=== PATIENT | female | born 1970 | race African-American/Black ===

== ENCOUNTER 2018-01-05 02:10 | Inpatient (IN) | payer OTHER ==
[~2018-01-05] VITALS: Ht 162.6 cm; Wt 101.9 kg
--- OUTSIDE RECORDS SUMMARY | 2018-01-05 02:13 | XMS REPORT | Clinical Summary ---
Author Author [facility] Address Unknown Phone Unavailable Care Team Providers Care Robotics Application Engineer Name Role Phone Prasanna Pollock MD PCP Allergies No Known Allergies Current Medications Prescription Sig. Disp. Refills Start End Date Status Date predniSONE (DELTASONE) 1 Take 1 mg by mouth daily. Active mg tablet diphenhydrAMINE Take 25 mg by mouth Active (BENADRYL) 25 mg tablet nightly as needed for sleep. doxycycline (VIBRAMYCIN) Take 100 mg by mouth 2 Active 100 MG oral dosage form (two) times a day. 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 Encounters Date Type Specialty Care Team Description 08/07/2017 [facility] Emergency Medicine Ankur White MD Angioedema, initial Encounter Venancio Vegas MD encounter (Primary Dx) 07/01/2017 [facility] Radiology Maris, Salvador Breast mass; Encounter MD Prasanna Mastodynia 07/01/2017 [facility] Radiology Maris Salvador Breast mass; Encounter MD Prasanna Mastodynia 06/28/2017 Transcribe Access Allencherrikentrell, Salvador Breast mass (Primary Dx); Orders MD Prasanna Mastodynia 05/13/2017 [facility] Surgical Intensive Care Ankur White MD Hereditary angioedema Encounter Venancio Vegas MD (Primary Dx) 05/06/2017 Emergency Emergency Medicine Parish Lyles MD after 01/04/2017 Immunizations Name Dates Previously Given Next Due FLUCELVAX QUAD PF (0.5mL 05/13/2017 syringe) Social History Tobacco Use Types Packs/Day Years Used Date Never Smoker Alcohol Use Drinks/Week oz/Week Comments No Sex Assigned at Date Recorded Not on file Last Filed Vital Signs Vital Sign Reading Time Taken Blood Pressure 136/73 08/07/2017 5:44 PM HIGH SCHOOL ASSISTANT FOOTBALL COACH Pulse 94 08/07/2017 5:44 PM HIGH SCHOOL ASSISTANT FOOTBALL COACH Temperature 36.4 C (97.6 F) 08/07/2017 5:44 PM HIGH SCHOOL ASSISTANT FOOTBALL COACH Respiratory Rate 19 08/07/2017 5:44 PM HIGH SCHOOL ASSISTANT FOOTBALL COACH Oxygen Saturation 100% 08/07/2017 5:44 PM HIGH SCHOOL ASSISTANT FOOTBALL COACH Inhaled Oxygen - - Concentration Weight 95.3 kg (210 lb) 08/07/2017 4:10 AM HIGH SCHOOL ASSISTANT FOOTBALL COACH Height 165.1 cm (5' 5") 08/07/2017 4:10 AM HIGH SCHOOL ASSISTANT FOOTBALL COACH Body Mass Index 34.95 08/07/2017 4:10 AM HIGH SCHOOL ASSISTANT FOOTBALL COACH Plan of Treatment Health Maintenance Due Date Last Done Comments PAP SMEAR 1989 INFLUENZA VACCINE 04/02/2018 05/13/2017 Procedures Procedure Name Priority Date/Time Associated Diagnosis Comments PA CRITICAL CARE, E/M Routine 05/15/2017 Results for this 30-74 MINUTES 10:15 AM CDT procedure are in the results section. after 01/04/2017 Results * XR Chest 1 Vw Portable (08/07/2017 7:27 AM) Only the most recent of 2 results within the time period is included. Specimen Performing Laboratory [facility] [address] [place] [address] Narrative EXAMINATION:XR CHEST 1 VW PORTABLE CLINICAL HISTORY:SHORTNESS OF BREATH COMPARISON:Most Recent Prior at [facility] IMPRESSION: The pulmonary vascular is slightly more prominent. The inspiratory effort is more shallow. Increasing atelectasis at the lung bases. No pneumothorax. [facility]-[id number] Procedure Note Interface, Radiology Results Incoming - 08/07/2017 7:31 AM HIGH SCHOOL ASSISTANT FOOTBALL COACH EXAMINATION: XR CHEST 1 VW PORTABLE CLINICAL HISTORY: SHORTNESS OF BREATH COMPARISON: Most Recent Prior at [facility] IMPRESSION: The pulmonary vascular is slightly more prominent. The inspiratory effort is more shallow. Increasing atelectasis at the lung bases. No pneumothorax. [facility]-[id number] * Estimated GFR (08/07/2017 6:24 AM) Only the most recent of 3 results within the time period is included. Component Value Ref Range GFR Non Af Amer 76 mL/min/1.73 m2 GFR Af Amer >90 mL/min/1.73 m2 Comment: Chronic kidney disease: <60 mL/min/1.73m2 Kidney failure: <15 mL/min/1.73m2 The estimated GFR is calculated from the IDMS-traceable Modification of Diet in Renal Disease Equation. The accuracy of the calculation is poor when the creatinine is normal. Calculated values >90 mL/min/1.73m2 are not reported. This equation has not been validated in children (<18 years), women, the elderly (>70 years), or ethnic groups other than Caucasians and Americans. Specimen Performing Laboratory Plasma specimen [facility] [address] [place] [address] * CBC with platelet and differential (08/07/2017 6:24 AM) Only the most recent of 3 results within the time period is included. Component Value Ref Range WBC 7.8 4.2 - 11.0 k/uL RBC 4.03 (L) 4.04 - 5.86 m/uL HGB 12.4 11.5 - 15.3 g/dL HCT 36.4 34.0 - 45.0 % MCV 90.3 80.0 - 98.0 fL MCH 30.8 27.0 - 34.0 pg MCHC 34.1 31.5 - 36.5 g/dL RDW - SD 43.9 37.0 - 51.0 fL MPV 8.8 7.4 - 10.4 fL Platelet count 314 150 - 400 k/uL Nucleated RBC 0.00 /100 WBC Neutrophils 70.1 (H) 36.0 - 66.0 % Lymphocytes 24.3 24.0 - 44.0 % Monocytes 3.6 0.0 - 6.0 % Eosinophils 1.2 0.0 - 6.0 % Basophils 0.5 0.0 - 1.2 % Immature granulocytes 0.3 0.0 - 1.0 % Specimen Performing Laboratory Blood [facility] [address] [place] [address] * Type and screen (08/07/2017 6:24 AM) Only the most recent of 2 results within the time period is included. Component Value Ref Range ABO grouping OComment: Blood is available. Called opal @0738 . Rh type NEG Antibody screen (gel) NEG Specimen Performing Laboratory Blood [facility]IC[facility] [address] [place] [address] * Comprehensive metabolic panel (08/07/2017 6:24 AM) Only the most recent of 3 results within the time period is included. Component Value Ref Range Sodium 140 135 - 150 mEq/L Potassium 4.1 3.5 - 5.0 mEq/L Chloride 107 100 - 109 mEq/L CO2 25 24 - 32 mmol/L Anion gap 8 7 - 15 mEq/L Comment: Starting from December , anion gap calculation no longer incorporates potassium. Please note the change. BUN 14 7 - 18 mg/dL Creatinine 0.8 0.8 - 1.5 mg/dL Glucose 99 65 - 100 mg/dL Calcium 8.4 (L) 8.6 - 10.7 mg/dL Protein 7.7 6.3 - 8.2 g/dL Albumin 3.4 3.2 - 5.0 g/dL A/G ratio 0.8 0.7 - 3.8 Alkaline phosphatase 73 30 - 120 U/L AST 12 (L) 15 - 37 U/L ALT 11 (L) 30 - 65 U/L Total bilirubin 0.2 0.2 - 1.2 mg/dL Specimen Performing Laboratory Plasma specimen [facility] [address] [place] [address] [place] [address] * ECG 12 lead (08/07/2017 5:52 AM) Only the most recent of 2 results within the time period is included. Component Value Ref Range Ventricular rate 75 Atrial rate 75 PA interval 172 QRSD interval 86 QT interval 404 QTC interval 451 P axis 1 53 QRS axis 1 59 T wave axis 52 EKG impression Normal sinus rhythm-Normal ECG-In automated comparison with ECG of 13-MAY-2017 03:00,-No significant change was found- Specimen Performing Laboratory [facility] [address] [place] [address] * US Breast Complete Bilateral (07/01/2017 9:44 AM) Specimen Performing [facility] [address] [place] [address] Narrative PROCEDURES:MAMMO DIAGNOSTIC W CAD BILATERAL, US BREAST COMPLETE BILATERAL Computer aided detection was utilized for the interpretation. COMPARISON: None available at this time from [place] 2-4 years ago. CLINICAL HISTORY: 47-year-old female presents for evaluation of a palpable abnormality in the right upper outer breast. FINDINGS: Breast density: The breasts are heterogeneously dense which may obscure small masses (category C). Mammography Findings: A palpable marker is placed in the right upper outer breast. No architectural distortion or mammographic mass is identified but may be obscured by the dense breast parenchyma. No suspicious microcalcifications are identified. There is no specific mammographic features of malignancy of either breast. Ultrasound Findings: Bilateral whole breast sonography (all 4 quadrants, retroareolar location, and axillae) was performed by the sonographerunder supervision of the interpreting radiologist. The patient indicated area of palpable concern in the right upper outer breast corresponds to dense fibroglandular tissue. 2 small simple cysts are present in the right outer breast at the 10 o'clock position, 9 cm from the nipple and inthe 9 o'clock position, 7 cm from the nipple, both measuring under 1 cm in size. The remainder of the whole right breast examination is unremarkable. The left breast is sonographically unremarkable. The axillae bilaterallydemonstrate nonspecific mildly thickened cortex lymph nodes. IMPRESSION: No mammographic or sonographic evidence of malignancy. Area of palpable concern in the right upper outer breast corresponding to fibroids or tissue. Incidental 7 mm small benign cysts are noted in the right outer breast at 9 o'clock and upper outer breast at 10 o'clock. Findings and recommendations were discussed with the patient. ASSESSMENT:BI-RADS CATEGORY 2: BENIGN. RECOMMENDATIONS: In the absence of any clinical change, return to annual screening is recommended. NOTE: This facility is a designated [facility] Breast Imaging Center of Excellence ( BICOE) , meeting standards of accreditation in all modalities of breast imaging. This facility is accredited by [employer] for Mammography and BreastUltrasound. A negative x-ray report should not delay biopsy if a dominant or clinically suspicious mass is present. Not all cancers are identified by x-ray. [id number] * Mammo Diagnostic w Cad Bilateral (07/01/2017 9:23 AM) Specimen Performing Laboratory [address] [address] Narrative PROCEDURES:MAMMO DIAGNOSTIC W CAD BILATERAL, US BREAST COMPLETE BILATERAL Computer aided detection was utilized for the interpretation. COMPARISON: None available at this time from [place] 2-4 years ago. CLINICAL HISTORY: 47-year-old female presents for evaluation of a palpable abnormality in the right upper outer breast. FINDINGS: Breast density: The breasts are heterogeneously dense which may obscure small masses (category C). Mammography Findings: A palpable marker is placed in the right upper outer breast. No architectural distortion or mammographic mass is identified but may be obscured by the dense breast parenchyma. No suspicious microcalcifications are identified. There is no specific mammographic features of malignancy of either breast. Ultrasound Findings: Bilateral whole breast sonography (all 4 quadrants, retroareolar location, and axillae) was performed by the sonographerunder supervision of the interpreting radiologist. The patient indicated area of palpable concern in the right upper outer breast corresponds to dense fibroglandular tissue. 2 small simple cysts are present in the right outer breast at the 10 o'clock position, 9 cm from the nipple and inthe 9 o'clock position, 7 cm from the nipple, both measuring under 1 cm in size. The remainder of the whole right breast examination is unremarkable. The left breast is sonographically unremarkable. The axillae bilaterallydemonstrate nonspecific mildly thickened cortex lymph nodes. IMPRESSION: No mammographic or sonographic evidence of malignancy. Area of palpable concern in the right upper outer breast corresponding to fibroids or tissue. Incidental 7 mm small benign cysts are noted in the right outer breast at 9 o'clock and upper outer breast at 10 o'clock. Findings and recommendations were discussed with the patient. ASSESSMENT:BI-RADS CATEGORY 2: BENIGN. RECOMMENDATIONS: In the absence of any clinical change, return to annual screening is recommended. NOTE: This facility is a designated [facility] Breast Imaging Center of Excellence ( BICOE) , meeting standards of accreditation in all modalities of breast imaging. This facility is accredited by [employer] for Mammography and BreastUltrasound. A negative x-ray report should not delay biopsy if a dominant or clinically suspicious mass is present. Not all cancers are identified by x-ray. [id number] * ECG ED Preliminary Interpretation - NOT AN ORDER (05/15/2017 10:15 AM) Babita White MD 05/15/2017 10:15 AM ECG ED Preliminary Interpretation - Not an Order Performed by: ANKUR WHITE Authorized by: ANKUR WHITE Interpretation: Interpretation: normal Rate: ECG rate:82 ECG rate assessment: normal Rhythm: Rhythm: sinus rhythm Ectopy: Ectopy: none QRS: QRS axis:Normal Conduction: Conduction: normal ST segments: ST segments:Normal T waves: T waves: normal * CRITICAL CARE (05/15/2017 10:15 AM) Narrative Ankur White MD 05/15/2017 10:15 AM Critical Care Performed by: ANKUR WHITE Authorized by: ANKUR WHITE Critical care provider statement: Critical care time (minutes):48 Critical care was necessary to treat or prevent imminent or life-threatening deterioration of the following conditions: angioedema with potentiasl airway compromise. Critical care was time spent personally by me on the following activities:Ordering and performing treatments and interventions, ordering and review of laboratory studies, re-evaluation of patient's condition, evaluation of patient's response to treatment, discussions with consultants and examination of patient * Troponin (05/13/2017 2:49 PM) Only the most recent of 4 results within the time period is included. Component Value Ref Range Troponin <0.01 0.00 - 0.60 ng/mL Comment: 0.11 - 1.49 ng/ml May indicate increased risk of acute coronary syndrome. >=1.5 ng/ml Consistent with acute myocardial infarction. The diagnostic value of a single normal or non-diagnostic result is questionable. Serial samples at 2-6 hour intervals are required to rule out acute myocardial injury. Specimen Performing Laboratory Plasma specimen [facility] [address] [place] [address] * B natriuretic peptide (05/13/2017 3:04 AM) Component Value Ref Range BNP 8 0 - 100 pg/mL Specimen Performing Laboratory Blood [facility]OM[facility]IC[facility] [address] [place] [address] after 01/04/2017 Insurance Payer Benefit Subscriber ID Type Phone Address Plan / Group HUMANA HUMANA xxxxxxxxx HMO HMO/POS/EP O/OPEN ACCESS
[2018-01-05] MEDS ORDERED: FAMOTIDINE 20 MG/2 ML VIAL IV STA (02:20)
[2018-01-05] MEDS ORDERED: METHYLPREDNISOLONE SOD SUCC 125 MG/2ML VIAL IV ONE (02:30)
[2018-01-05] MEDS ORDERED: DIPHENHYDRAMINE HCL INJ 50 MG/ML VIAL IV ONE (02:30)
[2018-01-05] MEDS ORDERED: LORAZEPAM INJ 2 MG/ML VIAL IV ONE (03:15)
[2018-01-05 04:26] LABS: BASOPHILS % 0.2 % (0.0-1.0); EOSINOPHILS # (AUTO) 0.1 (0.0-0.4); EOSINOPHILS % 0.5 % (0.0-6.0); HEMATOCRIT 40.9 % (34.2-44.1); LYMPHOCYTES # (AUTO) 2.3 (1.0-3.2); LYMPHOCYTES % 17.7 % (18.0-39.1); MEAN CORPUSCULAR HEMOGLOBIN 30.8 pg (28-32); MEAN CORPUSCULAR HGB CONC 34.2 g/dL (31-35); MEAN CORPUSCULAR VOLUME 89.9 fL (81-99); MONOCYTES # (AUTO) 0.4 (0.2-0.8); MONOCYTES % 3.4 % (4.4-11.3); NEUTROPHILS % 77.8 % (38.7-80.0); PLATELET COUNT 297 x10e3/uL (140-360); RED BLOOD COUNT 4.55 x10e6/uL (3.6-5.1); RED CELL DISTRIBUTION WIDTH 13.3 % (11.7-14.4)
[2018-01-05 04:41] LABS: BILIRUBIN,URINE NEGATIVE (NEGATIVE); CLARITY,URINE CLEAR (CLEAR); COLOR,URINE YELLOW (YELLOW); KETONES,URINE NEGATIVE (NEGATIVE); NITRITE,URINE NEGATIVE (NEGATIVE); PROTEIN,URINE DIPSTICK NEGATIVE (NEGATIVE); URINE UROBILINOGEN 0.2 mg/dL (0.2 - 1)
[2018-01-05 04:42] LABS: LEUKOCYTE ESTERASE ,URINE 1+ (NEGATIVE)
[2018-01-05 04:44] LABS: ALANINE AMINOTRANSFERASE 8 IU/L (0-55); ALBUMIN 3.8 g/dL (3.5-5.0); ALBUMIN/GLOBULIN RATIO 0.8 (0.8-2.0); ALKALINE PHOSPHATASE 67 IU/L (40-150); ANION GAP 17.3 mmol/L (8-16); BLOOD UREA NITROGEN 16 mg/dL (7-26); BUN/CREATININE RATIO 20 (6-25); CALCIUM 9.9 mg/dL (8.4-10.2); CARBON DIOXIDE 22 mmol/L (22-29); CHLORIDE 104 mmol/L (98-107); CREATININE, SERUM 0.82 mg/dL (0.57-1.11); EST GLOMERULAR FILTRATION RATE > 60 ML/MIN (60-); GLUCOSE 110 mg/dL (74-118); POTASSIUM 4.3 mmol/L (3.5-5.1); SODIUM 139 mmol/L (136-145)
[2018-01-05 04:46] LABS: BACTERIA,URINE RARE /HPF; EPITHELIAL CELLS,URINE MANY /LPF; RBC,URINE 0-5 /HPF (0-5)
--- NOTE | 2018-01-05 05:15 | Diagnostic Imaging Report ---
EXAM: CHEST SINGLE (PORTABLE), AP 1 view INDICATION: Shortness of breath, swollen tongue COMPARISON: None FINDINGS: LINES/TUBES: None LUNGS: No consolidations or edema. PLEURA: No effusions or pneumothorax. HEART AND MEDIASTINUM: Normal size and contour. BONES AND SOFT TISSUES: No acute findings. IMPRESSION: No acute thoracic abnormality. Signed by: Dr. Vianey Dang M.D. on 01/05/2018 5:12 AM
[2018-01-05] MEDS ORDERED: PROMETHAZINE 12.5MG/ NACL 0.9% 12.5 MG/50 ML BAG IV PRN (06:00)
--- OUTSIDE RECORDS SUMMARY | 2018-01-05 06:12 | XMS REPORT | Clinical Summary ---
Author Author [facility] Address Unknown Phone Unavailable Care Team Providers Care Supervisor Incising Name Role Phone Prasanna Pollock MD PCP [...] Date Type Specialty Care Team Description 08/07/2017 [facility] Emergency Medicine Ankur White MD Angioedema, initial Encounter Venancio eVgas MD encounter (Primary Dx) 07/01/2017 [facility] Radiology Maris, Salvador Breast mass; Encounter MD Prasanna Mastodynia 07/01/2017 [facility] Radiology Maris Salvador Breast mass; Encounter MD Prasanna Mastodynia 06/28/2017 Transcribe Access Allencherrikentrell, Salvador Breast mass (Primary Dx); Orders MD Prasanna Mastodynia 05/13/2017 [facility] Surgical Intensive Care Ankur White MD Hereditary [...] Taken Blood Pressure 136/73 08/07/2017 5:44 PM RETAIL AND RESTAURANT Pulse 94 08/07/2017 5:44 PM RETAIL AND RESTAURANT Temperature 36.4 C (97.6 F) 08/07/2017 5:44 PM RETAIL AND RESTAURANT Respiratory Rate 19 08/07/2017 5:44 PM RETAIL AND RESTAURANT Oxygen Saturation 100% 08/07/2017 5:44 PM RETAIL AND RESTAURANT Inhaled Oxygen - - Concentration Weight 95.3 kg (210 lb) 08/07/2017 4:10 AM RETAIL AND RESTAURANT Height 165.1 cm (5' 5") 08/07/2017 4:10 AM RETAIL AND RESTAURANT Body Mass Index 34.95 08/07/2017 4:10 AM RETAIL AND RESTAURANT Plan of Treatment Health Maintenance Due Date Last Done Comments PAP SMEAR 1989 INFLUENZA VACCINE 04/02/2018 05/13/2017 Procedures Procedure Name Priority Date/Time Associated Diagnosis Comments [place] CRITICAL CARE, E/M Routine 05/15/2017 Results for this 30-74 MINUTES 10:15 AM CDT procedure are in the results section. after 01/04/2017 Results * XR Chest 1 Vw Portable (08/07/2017 7:27 AM) Only the most recent of 2 results within the time period is included. Specimen Performing Laboratory [facility] [address] [place] [address] Narrative EXAMINATION:XR CHEST 1 VW PORTABLE CLINICAL HISTORY:SHORTNESS OF BREATH COMPARISON:Most Recent Prior at [facility] IMPRESSION: The pulmonary vascular is slightly more prominent. The inspiratory effort is more shallow. Increasing atelectasis at the lung bases. No pneumothorax. [facility]-[id number] Procedure Note Interface, Radiology Results Incoming - 08/07/2017 7:31 AM RETAIL AND RESTAURANT EXAMINATION: XR CHEST 1 VW PORTABLE CLINICAL HISTORY: SHORTNESS OF BREATH COMPARISON: Most Recent Prior at [facility] IMPRESSION: The pulmonary vascular is slightly more prominent. The inspiratory effort is more shallow. Increasing atelectasis at the lung bases. No pneumothorax. [facility]-[id number] * Estimated GFR (08/07/2017 6:24 AM) Only [...] and Americans. Specimen Performing Laboratory Plasma specimen [facility] DEPARTMENT OF PATHOLOGY AND GENOMIC MEDICINE [address] [place] [address] * CBC with platelet and differential (08/07/2017 [...] - 1.0 % Specimen Performing Laboratory Blood [facility] DEPARTMENT OF PATHOLOGY AND GENOMIC MEDICINE [address] [place] [address] * Type and screen (08/07/2017 6:24 AM) Only the most recent of 2 results within the time period is included. Component Value Ref Range ABO grouping OComment: Blood is available. Called opal @0738 . Rh type NEG Antibody screen (gel) NEG Specimen Performing Laboratory Blood [facility] DEPARTMENT OF PATHOLOGY AND GENOMIC MEDICINE [address] [place] [address] * Comprehensive metabolic panel (08/07/2017 6:24 AM) [...] 1.2 mg/dL Specimen Performing Laboratory Plasma specimen [facility] DEPARTMENT OF PATHOLOGY AND GENOMIC MEDICINE [address] [place] [address] [place] [address] * ECG 12 lead (08/07/2017 5:52 AM) Only the most recent of 2 results within the time period is included. Component Value Ref Range Ventricular rate 75 Atrial rate 75 LA interval 172 QRSD interval 86 QT interval 404 QTC interval 451 P axis 1 53 QRS axis 1 59 T wave axis 52 EKG impression Normal sinus rhythm-Normal ECG-In automated comparison with ECG of 13-MAY-2017 03:00,-No significant change was found- Specimen Performing Laboratory [facility] [address] [place] [address] * US Breast Complete Bilateral (07/01/2017 9:44 AM) Specimen Performing Laboratory [facility] [address] [place] [address] Narrative PROCEDURES:MAMMO DIAGNOSTIC W CAD BILATERAL, US BREAST COMPLETE BILATERAL Computer aided detection was utilized for the interpretation. COMPARISON: None available at this time from [place] 2-4 years ago. CLINICAL HISTORY: 47-year-old female [...] recommended. NOTE: This facility is a designated [facility] Breast Imaging Center of Excellence ( BICOE) , meeting standards of accreditation in all modalities of breast imaging. This facility is accredited by [employer] for Mammography and BreastUltrasound. A negative x-ray report should not delay biopsy if a dominant or clinically suspicious mass is present. Not all cancers are identified by x-ray. [id number] * Mammo Diagnostic w Cad Bilateral (07/01/2017 9:23 AM) Specimen Performing Laboratory [address] [address] Narrative PROCEDURES:MAMMO DIAGNOSTIC W CAD BILATERAL, US BREAST COMPLETE BILATERAL Computer aided detection was utilized for the interpretation. COMPARISON: None available at this time from [place] 2-4 years ago. CLINICAL HISTORY: 47-year-old female [...] recommended. NOTE: This facility is a designated [facility] Breast Imaging [facility] of Excellence ( BICOE) , meeting standards of accreditation in all modalities of breast imaging. This facility is accredited by [employer] for Mammography and BreastUltrasound. A negative x-ray report should not delay biopsy if a dominant or clinically suspicious mass is present. Not all cancers are identified by x-ray. [id number] * ECG ED Preliminary Interpretation - NOT [...] myocardial injury. Specimen Performing Laboratory Plasma specimen [facility] DEPARTMENT OF PATHOLOGY AND GENOMIC MEDICINE [address] [place] [address] * B natriuretic peptide (05/13/2017 3:04 AM) Component Value Ref Range BNP 8 0 - 100 pg/mL Specimen Performing Laboratory Blood [facility] DEPARTMENT OF PATHOLOGY AND GENOMIC MEDICINE [address] [place] [address] after 01/04/2017 Insurance Payer Benefit Subscriber ID Type Phone Address Plan / Group HUMANA HUMANA xxxxxxxxx HMO HMO/POS/EP O/OPEN ACCESS
--- OUTSIDE RECORDS SUMMARY | 2018-01-05 06:12 | XMS REPORT ---
Author [facility] Address Unknown Phone Unavailable Care Team Providers Care Equity Research Analyst Name Role Phone HUBER HARMON Unavailable Unavailable Problems This patient has no known problems. Allergies, Adverse Reactions, Alerts This patient has no known allergies or adverse reactions. Medications This patient has no known medications. Results Test Description Test Time Test Comments Text Results Atomic Results Result Comments CHEST SINGLE (PORTABLE) [place] [address] Patient Name: ONI BOUCHER MR #: [id number] : 1970 Age/Sex: 47/F Req #: [id number] Adm Physician: Ordered by: HUBER HARMON MD Report #: [id number] Location: ER Room/Bed: ___ Procedure: [id number] DX/CHEST SINGLE (PORTABLE) Exam Date: 01/05/18 Exam Time: 419 REPORT STATUS: Signed EXAM: CHEST SINGLE (PORTABLE), AP 1 view INDICATION: Shortness of breath, swollen tongue COMPARISON: None FINDINGS: LINES/TUBES: None LUNGS: No consolidations or edema. PLEURA: No effusions or pneumothorax. HEART AND MEDIASTINUM: Normal size and contour. BONES AND SOFT TISSUES: No acute findings. IMPRESSION: No acute thoracic abnormality. Signed by: Dr. Sara Germain M.D. on 01/05/2018 5:12 AM Dictated By: SARA GERMAIN MD 1 Transcribed By: ARETHA on 01/05/18511 COPY TO: HUBER HARMON MD
[2018-01-05] MEDS: METHYLPREDNISOLONE SOD SUCC 40 MG/ML VIAL IV SCH ×3 (06:27→18:06)
[2018-01-05] MEDS: DIPHENHYDRAMINE HCL INJ 50 MG/ML VIAL IV SCH ×3 (06:27→18:06)
[2018-01-05] MEDS: SODIUM CHLORIDE 0.9% 1000ML 1,000 ML IV SCH ×3 (06:31→22:30)
[2018-01-05] MEDS: MORPHINE SULFATE 2 MG/ML SYR IV PRN (06:34)
[2018-01-05] MEDS: FAMOTIDINE 20 MG/2 ML VIAL IV SCH ×2 (09:10→16:55)
[2018-01-05 09:52] LABS: INR 1.07; PROTHROMBIN TIME 13.1 seconds (11.9-14.5)
[2018-01-05] MEDS ORDERED: SODIUM CHLORIDE 0.9% 250ML 250 ML ONE (12:15)
--- NOTE | 2018-01-05 15:25 | History and Physical ---
CHIEF COMPLAINT: Facial swelling, swallowing difficulty with acute exacerbation of hereditary angioedema. HISTORY OF PRESENT ILLNESS: This is a 47-year-old female with extensive symptoms and recurrent episode of hereditary angioedema. She came in at this time with bilateral facial swelling, tongue swelling, and difficulty swallowing with near respiratory compromise, but did not go into respiratory failure. Patient is using IV Solu-Medrol and Benadryl. She has slightly increased confusion. Patient is stable. Patient has recurrent episode last hospitalization . Patient had multiple episodes of edema. The episode is usually mild where she is taking as needed prednisone to improve the symptoms. She does take Benadryl on a daily basis. Patient . 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 PAST SURGICAL HISTORY: Partial hysterectomy and x3. SOCIAL HISTORY: Patient works in administrative work. She does not smoke or use alcohol. No recreational drug use. ALLERGIES: NO KNOWN ALLERGIES. HOME MEDICATION: Prednisone and Benadryl. PHYSICAL EXAMINATION VITAL SIGNS: Temperature is 98, blood pressure 144/86, pulse rate is 103, and respirations 20. GENERAL: Patient is not in any acute distress. She has some improvement. She is able to complete sentences . HEENT: Normocephalic, atraumatic. Anicteric. Facial swelling, tongue swelling, and lip swelling. NECK: Supple grossly. CARDIOVASCULAR: Regular rate and rhythm. ABDOMEN: Soft. EXTREMITIES: No cyanosis or edema. NEUROLOGIC: No gross focal deficits. LABORATORY: WBC is 12.7, hemoglobin 14, hematocrit 41, and platelets 297. Chemistry, sodium 139, potassium 4.3, chloride 104, bicarb , and glucose is 110. IMAGING: Chest x-ray done in the office . IMPRESSION: Acute exacerbation of hereditary angioedema associated with tongue, facial, and mouth swelling with some respiratory insufficiency. PLAN: Continue with Solu-Medrol IV. Continue with Benadryl. Consultation with lolita at this time. We will monitor the patient closely. Job#: [id number] [facility]
[2018-01-05 18:42] VITALS: BP 136/79
[2018-01-05 20:30] VITALS: BP 121/68
[2018-01-06] VITALS: BP 127/78
[2018-01-06] MEDS: DIPHENHYDRAMINE HCL INJ 50 MG/ML VIAL IV SCH ×4 (00:42→19:15)
[2018-01-06 04:00] VITALS: BP 114/72
[2018-01-06] MEDS: METHYLPREDNISOLONE SOD SUCC 40 MG/ML VIAL IV SCH ×4 (05:37→19:15)
[2018-01-06] MEDS: SODIUM CHLORIDE 0.9% 1000ML 1,000 ML IV SCH ×3 (05:59→21:59)
[2018-01-06 06:53] LABS: BASOPHILS % 0.1 % (0.0-1.0); HEMATOCRIT 35.4 % (34.2-44.1); HEMOGLOBIN 11.7 g/dL (12.0-16.0); LYMPHOCYTES # (AUTO) 1.5 (1.0-3.2); LYMPHOCYTES % 13.5 % (18.0-39.1); MEAN CORPUSCULAR HGB CONC 33.1 g/dL (31-35); MEAN CORPUSCULAR VOLUME 90.8 fL (81-99); MONOCYTES # (AUTO) 0.2 (0.2-0.8); MONOCYTES % 2.1 % (4.4-11.3); NEUTROPHILS # (AUTO) 9.3 (2.1-6.9); NEUTROPHILS % 83.8 % (38.7-80.0); PLATELET COUNT 305 x10e3/uL (140-360); RED CELL DISTRIBUTION WIDTH 13.4 % (11.7-14.4)
[2018-01-06 07:25] LABS: ALANINE AMINOTRANSFERASE 7 IU/L (0-55); ALBUMIN 3.5 g/dL (3.5-5.0); ALBUMIN/GLOBULIN RATIO 0.8 (0.8-2.0); ALKALINE PHOSPHATASE 70 IU/L (40-150); ANION GAP 12.9 mmol/L (8-16); BLOOD UREA NITROGEN 15 mg/dL (7-26); BUN/CREATININE RATIO 19 (6-25); CALCIUM 9.3 mg/dL (8.4-10.2); CARBON DIOXIDE 23 mmol/L (22-29); CHLORIDE 107 mmol/L (98-107); CREATININE, SERUM 0.79 mg/dL (0.57-1.11); EST GLOMERULAR FILTRATION RATE > 60 ML/MIN (60-); GLUCOSE 134 mg/dL (74-118); POTASSIUM 3.9 mmol/L (3.5-5.1); SODIUM 139 mmol/L (136-145)
--- NOTE | 2018-01-06 08:11 | Consultation ---
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 She presented with a long history of recurrent episodes of angioedema, which has been worked up as an outpatient extensively, and no allergic etiology has been identified. She has been diagnosed with hereditary angioedema. She now presents with her typical symptoms of tongue swelling and inability to swallow. Since admission, her symptoms have significantly improved. PHYSICAL EXAMINATION HEENT: The external auditory canals are normal. The tympanic membranes are moderately scarred and hypomobile. Intranasal examination is unremarkable. Oral cavity examination shows minimal edema of the floor of the mouth. The tongue is unremarkable. She has moderate candidiasis on the dorsum of the tongue. There is no palpable cervical adenopathy. She has no stridor or breathing difficulties. ASSESSMENT: Hereditary angioedema with no evidence of impending airway problems. PLAN: No otolaryngology changes at this time. Thank you very much for this consultation. Job#: [id number] [place]
[2018-01-06] MEDS: FAMOTIDINE 20 MG/2 ML VIAL IV SCH ×2 (09:22→17:13)
[2018-01-06 15:05] VITALS: BP 114/72
[2018-01-06] MEDS: MORPHINE SULFATE 2 MG/ML SYR IV PRN (19:51)
[2018-01-06 19:54] VITALS: BP 149/89
[2018-01-07] MEDS: METHYLPREDNISOLONE SOD SUCC 40 MG/ML VIAL IV SCH ×2 (00:34→05:36)
[2018-01-07] MEDS: DIPHENHYDRAMINE HCL INJ 50 MG/ML VIAL IV SCH ×2 (00:34→05:36)
[2018-01-07 00:35] VITALS: BP 156/107
[2018-01-07 05:10] VITALS: BP 146/85
[2018-01-07 05:12] VITALS: BP 146/85
[2018-01-07 07:55] VITALS: BP 152/82
[2018-01-07] MEDS: FAMOTIDINE 20 MG/2 ML VIAL IV SCH (09:46)
--- NOTE | 2018-01-07 10:00 | Discharge Summary ---
CONSULTANTS: Dr. Bert Braxton FINAL DIAGNOSES 1. Acute exacerbation of hereditary angioedema with near respiratory compromise secondary to tongue and facial swelling. 2. Acute dysphagia, resolved. A 47-year-old female with hereditary angioedema. The patient came in with exacerbation. She had tongue and facial swelling significantly. The patient did receive plasma transfusion, IV Benadryl along with Solu-Medrol. She is doing much better now. She is stable. Back to baseline. Discussed with the patient at length. She will continue with prednisone daily for 7 days for which she already has at home. After that, she will continue with her method of treatment. The patient is stable. She does want go home. Tolerated oral diet. No respiratory problem at this time. No swelling. Patient will follow up with her family doctors and her specialist as an outpatient for her continued treatment with hereditary angioedema. Job#: [id number]
== END 2018-01-07 10:07 | disposition home or self-care (01) | DRG 642 ==
LOC: ER 02:10 → ERHOLD 06:08 → IMCU 17:53
PROVIDERS: ADMIT Internal Medicine; ATTEND Internal Medicine
DX: D84.1 Defects in the complement system (principal); B37.0 Candidal stomatitis; T78.3XXA Angioneurotic edema, initial encounter; R06.89 Other abnormalities of breathing
CPT/HCPCS: 36415; 71045; 80053; 81001; 85025; 85610; 85730; 86900; 96374; 99284; J1200; J2060; J2270; J2920; J2930; J7030; J7050; P9017

== ENCOUNTER 2018-07-23 16:01 | Emergency (ER) | payer OTHER ==
[~2018-07-23] VITALS: Ht 162.6 cm; Wt 101.6 kg
--- OUTSIDE RECORDS SUMMARY | 2018-07-23 16:03 | XMS REPORT | Clinical Summary ---
Author Author [facility] Organization [facility] Address Unknown Phone Unavailable Care Team Providers Care Camouflage Assembler Name Role Phone Maikel Woody MD PCP Allergies No Known Allergies Medications End Date Status Medication Sig Dispensed Refills Start Date Active diphenhydrAMINE Take 25 mg by 0 (BENADRYL) 25 mg tablet mouth nightly as needed for sleep. Active ibuprofen (ADVIL,MOTRIN) Take 800 mg 0 800 MG tablet by mouth every 6 (six) hours as needed for mild pain. 08/04/2018 Active famotidine (PEPCID) 20 MG Take 1 tablet 60 tablet 0 tablet (20 mg total) 8 by mouth 2 (two) times a day for 30 days. 07/04/2018 Discontinued predniSONE (DELTASONE) 1 Take 1 mg by 0 mg tablet mouth daily. 07/04/2018 Discontinued doxycycline (VIBRAMYCIN) Take 100 mg 0 100 MG oral dosage form by mouth 2 (two) times a day. 07/10/2018 methylPREDNISolone follow 21 tablet 0 (MEDROL, AIDAN,) 4 mg package 8 tablet directions 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 Encounters Care Team Description Date Type Specialty Maikel Woody MD Screening for malignant neoplasm of breast 07/16/2018 Hospital Radiology Encounter Maikel Woody MD Screening for malignant neoplasm of breast (Primary Dx) 07/09/2018 Transcribe Access Orders Yimi Miller-MD Maris Victor Paul Joseph, MD Hereditary angioedema (HCC) (Primary Dx) 07/04/2018 Hospital Intensive Care - Encounter 07/05/2018 Audi White MD Hereditary angioedema (Primary Dx) 05/15/2018 Emergency Emergency Medicine - 05/16/2018 Audi White MD Berberian, Esteban N., MD Angioedema, initial encounter (Primary Dx) 08/07/2017 Hospital Emergency Medicine Encounter after 07/22/2017 Immunizations Name Dates Previously Given Next Due FLUCELVAX QUAD PF (0.5mL 05/13/2017 syringe) Social History Date Tobacco Use Types Packs/Day Years Used Never Smoker Smokeless Tobacco: Never Used Alcohol Use Drinks/Week oz/Week Comments Yes socially Sex Assigned at Date Recorded Not on file Industry Job Start Date Occupation Not on file Not on file Not on file Travel End Travel History Travel Start No recent travel history available. Last Filed Vital Signs Time Taken Vital Sign Reading 07/05/2018 10:00 AM CDT Blood Pressure 125/68 07/05/2018 11:30 AM CDT Pulse 101 07/05/2018 8:00 AM CDT Temperature 36.7 C (98 F) 07/05/2018 10:45 AM CDT Respiratory Rate 23 07/05/2018 11:30 AM CDT Oxygen Saturation 61% - Inhaled Oxygen - Concentration 07/04/2018 12:45 PM CDT Weight 97.3 kg (214 lb 6.4 oz) 07/04/2018 12:45 PM CDT Height 162.6 cm (5' 4") 07/04/2018 12:45 PM CDT Body Mass Index 36.8 Plan of Treatment Health Maintenance Due Date Last Done Comments MMR VACCINES (1 of 1 - 1969 Standard series) VARICELLA VACCINES (1 of 1981 2 - 2-dose adolescent series) CERVICAL CANCER SCREENING 1989 INFLUENZA VACCINE 04/02/2018 05/13/2017 COLON CANCER SCREENING 2018 SHINGRIX VACCINE (1 of 2) 2018 BREAST CANCER SCREENING 07/16/2020 07/16/2018, 07/01/2017, 07/01/2017 HEPATITIS B VACCINES Aged Out No longer eligible based on patient's age to complete this topic IPV VACCINES Aged Out No longer eligible based on patient's age to complete this topic MENINGOCOCCAL VACCINE Aged Out No longer eligible based on patient's age to complete this topic Procedures Comments Procedure Name Priority Date/Time Associated Diagnosis MAMMO BREAST SCREEN Routine 07/16/2018 Screening for malignant TOMOSYNTHESIS BILATERAL 3:16 PM PHOTO MASK INSPECTOR neoplasm of breast ESTIMATED GFR Routine 07/05/2018 4:25 AM CDT PHOSPHORUS LEVEL Routine 07/05/2018 4:25 AM CDT MAGNESIUM LEVEL Routine 07/05/2018 4:25 AM CDT IONIZED CALCIUM Routine 07/05/2018 4:25 AM CDT HC COMPLETE BLD COUNT Routine 07/05/2018 W/AUTO DIFF 4:25 AM CDT BASIC METABOLIC PANEL Routine 07/05/2018 4:25 AM CDT POC GLUCOSE Routine 07/04/2018 5:20 PM CDT POC GLUCOSE Routine 07/04/2018 1:30 PM CDT PREPARE FRESH FROZEN Routine 07/04/2018 PLASMA 9:51 AM CDT PREPARE PLATELET PHERESIS Routine 07/04/2018 9:51 AM CDT TYPE AND SCREEN Routine 07/04/2018 9:51 AM CDT PREPARE FRESH FROZEN Timed 07/04/2018 PLASMA 9:43 AM CDT ESTIMATED GFR STAT 07/04/2018 9:30 AM CDT COMPREHENSIVE METABOLIC STAT 07/04/2018 PANEL 9:30 AM CDT HC COMPLETE BLD COUNT STAT 07/04/2018 W/AUTO DIFF 9:30 AM CDT PA CRITICAL CARE, E/M Routine 07/04/2018 30-74 MINUTES 9:25 AM CDT ESTIMATED GFR STAT 05/16/2018 12:21 AM CDT COMPREHENSIVE METABOLIC STAT 05/16/2018 PANEL 12:21 AM CDT HC COMPLETE BLD COUNT STAT 05/16/2018 W/AUTO DIFF 12:21 AM CDT XR CHEST 1 VW PORTABLE STAT 08/07/2017 7:27 AM PHOTO MASK INSPECTOR ZZESTIMATED GFR Routine 08/07/2017 6:24 AM PHOTO MASK INSPECTOR COMPREHENSIVE METABOLIC Routine 08/07/2017 PANEL 6:24 AM PHOTO MASK INSPECTOR HC COMPLETE BLD COUNT Routine 08/07/2017 W/AUTO DIFF 6:24 AM PHOTO MASK INSPECTOR TYPE AND SCREEN Routine 08/07/2017 6:24 AM PHOTO MASK INSPECTOR ECG 12-LEAD Routine 08/07/2017 5:52 AM PHOTO MASK INSPECTOR PREPARE FRESH FROZEN Timed 08/07/2017 PLASMA 4:29 AM PHOTO MASK INSPECTOR after 07/22/2017 Results * Mammo Breast Screen Tomosynthesis Bilateral (07/16/2018 3:16 PM PHOTO MASK INSPECTOR) Narrative Performed At PROCEDURE: MAMMO BREAST SCREEN TOMOSYNTHESIS BILATERAL [facility] Computer aided detection was utilized for the interpretation of the digital bilateral screening mammography with tomosynthesis. COMPARISON: Prior study dating 07/01/2017 DENSITY: The breast parenchyma is heterogeneously dense, decreasing the sensitivity of the study. There is no suspicious masses, architectural distortions or grouped calcifications. IMPRESSION:No mammographic evidence of malignancy. RECOMMENDATION: Comparison with physical exam and annual screening mammography. BI-RADS 1:NEGATIVE This facility is accredited by the [employer] for Mammography. A negative x-ray report should not delay biopsy if a dominant or clinically suspicious mass is present.Not all cancers are identified by x-ray. [id number] Performing Organization Address City/State/Zipcode Phone Number [facility] [address] [place] [address] * Estimated GFR (07/05/2018 4:25 AM CDT) Only the most recent of 3 results within the time period is included. Estimated GFR >=90 mL/min/1.73 m2 [facility] DEPARTMENT OF Comment: PATHOLOGY AND [employer] GENOMIC MEDICINE rpretation G1 >=90 Normal or high G2 60-89Mildly decreased L3s04-97 Mildly to moderately decreased K3g24-10 Moderately to severely decreased G4 15-29Severely decreased G5 <15Kidney failure The eGFR was calculated using the Chronic Kidney Disease Epidemiology Collaboration (CKD-EPI) equation. Interpretation is based on recommendations of the National Kidney Foundation-Kidney Disease Outcomes Quality Initiative (NKF-KDOQI) published in 2014. Specimen Plasma specimen Performing Organization Address City/State/Zipcode Phone Number [facility] [address] [address] PATHOLOGY AND GENOMIC MEDICINE * CBC with platelet and differential (07/05/2018 4:25 AM CDT) Only the most recent of 4 results within the time period is included. WBC 10.0 4.2 - 11.0 k/uL [facility] DEPARTMENT OF PATHOLOGY AND GENOMIC MEDICINE RBC 3.95 (L) 4.04 - 5.86 m/uL [facility] DEPARTMENT OF PATHOLOGY AND GENOMIC MEDICINE HGB 11.9 11.5 - 15.3 g/dL [facility] DEPARTMENT OF PATHOLOGY AND GENOMIC MEDICINE HCT 35.9 34.0 - 45.0 % [facility] DEPARTMENT OF PATHOLOGY AND GENOMIC MEDICINE MCV 90.9 80.0 - 98.0 fL [facility] DEPARTMENT OF PATHOLOGY AND GENOMIC MEDICINE MCH 30.1 27.0 - 34.0 pg [facility] DEPARTMENT OF PATHOLOGY AND GENOMIC MEDICINE MCHC 33.1 31.5 - 36.5 g/dL [facility] DEPARTMENT OF PATHOLOGY AND GENOMIC MEDICINE RDW - SD 43.1 37.0 - 51.0 fL [facility] DEPARTMENT OF PATHOLOGY AND GENOMIC MEDICINE MPV 9.6 7.4 - 10.4 fL [facility] DEPARTMENT OF PATHOLOGY AND GENOMIC MEDICINE Platelet count 297 150 - 400 k/uL [facility] DEPARTMENT OF PATHOLOGY AND GENOMIC MEDICINE Nucleated RBC 0.00 /100 WBC [facility] DEPARTMENT OF PATHOLOGY AND GENOMIC MEDICINE Neutrophils 80.7 (H) 36.0 - 66.0 % [facility] DEPARTMENT OF PATHOLOGY AND GENOMIC MEDICINE Lymphocytes 15.0 (L) 24.0 - 44.0 % [facility] DEPARTMENT OF PATHOLOGY AND GENOMIC MEDICINE Monocytes 3.7 0.0 - 6.0 % [facility] DEPARTMENT OF PATHOLOGY AND GENOMIC MEDICINE Eosinophils 0.0 0.0 - 6.0 % [facility] DEPARTMENT OF PATHOLOGY AND GENOMIC MEDICINE Basophils 0.1 0.0 - 1.2 % [facility] DEPARTMENT OF PATHOLOGY AND GENOMIC MEDICINE Immature granulocytes 0.5 0.0 - 1.0 % [facility] DEPARTMENT OF PATHOLOGY AND GENOMIC MEDICINE Specimen Blood Performing Organization Address City/State/Zipcode Phone Number [place] [address] [place] [address] PATHOLOGY AND GENOMIC MEDICINE * Phosphorus level (07/05/2018 4:25 AM CDT) Phosphorus 3.0 2.4 - 4.5 mg/dL [facility] DEPARTMENT OF PATHOLOGY AND GENOMIC MEDICINE Specimen Plasma specimen Performing Organization Address City/[facility] Phone Number [facility] DE[facility] [address] [place] [address] PATHOLOGY AND GENOMIC MEDICINE * Magnesium level (07/05/2018 4:25 AM CDT) Magnesium 2.00 1.60 - 2.60 mg/dL [facility] DEPARTMENT OF PATHOLOGY AND GENOMIC MEDICINE Specimen Plasma specimen Performing Organization Address City/[facility] Services[facility] Phone Number [address] [place] [address] PATHOLOGY AND GENOMIC MEDICINE * Ionized calcium (07/05/2018 4:25 AM CDT) pH 7.41 [facility] DEPARTMENT OF PATHOLOGY AND GENOMIC MEDICINE Ionized calcium 1.15 1.11 - 1.32 mmol/L [facility] DEPARTMENT OF PATHOLOGY AND GENOMIC MEDICINE Specimen Plasma specimen Performing Organization Address City/[facility] Phone [place] [facility] DE[facility] [address] [place] [address] PATHOLOGY AND GENOMIC MEDICINE * Basic metabolic panel (07/05/2018 4:25 AM CDT) Sodium 137 135 - 150 mEq/L [facility] DEPARTMENT OF PATHOLOGY AND GENOMIC MEDICINE Potassium 4.1 3.5 - 5.0 mEq/L [facility] DEPARTMENT OF PATHOLOGY AND GENOMIC MEDICINE Chloride 100 98 - 112 mEq/L [facility] DEPARTMENT OF PATHOLOGY AND GENOMIC MEDICINE CO2 24 24 - 31 mmol/L [facility] DEPARTMENT OF PATHOLOGY AND GENOMIC MEDICINE Anion gap 13@ANIO 7 - 15 mEq/L [facility] DEPARTMENT OF PATHOLOGY AND GENOMIC MEDICINE BUN 11 7 - 18 mg/dL [facility] DEPARTMENT OF PATHOLOGY AND GENOMIC MEDICINE Creatinine 0.70 0.50 - 0.90 mg/dL [facility] DEPARTMENT OF PATHOLOGY AND GENOMIC MEDICINE Glucose 126 (H) 65 - 100 mg/dL [facility] DEPARTMENT OF PATHOLOGY AND GENOMIC MEDICINE Calcium 9.2 8.3 - 10.2 mg/dL [facility] DEPARTMENT OF PATHOLOGY AND GENOMIC MEDICINE Specimen Plasma specimen Performing Organization Address City/[facility] Phone Number [facility] DEPARTMENT [address] [place] [address] PATHOLOGY AND GENOMIC MEDICINE * POC glucose (07/04/2018 5:20 PM CDT) Only the most recent of 2 results within the time period is included. POC glucose 142 (H) 65 - 100 mg/dL [facility] DEPARTMENT OF Comment: PATHOLOGY AND Meter ID: [id number] GENOMIC MEDICINE Refinery Operator [employer]: [employer] Performing Organization Address City/[facility] Services[facility] Phone Number [facility] [place] [address] [place] [address]. [place] [address] PATHOLOGY AND GENOMIC MEDICINE * Transfuse fresh frozen plasma (07/04/2018 12:14 PM CDT) Only the most recent of 2 results within the time period is included. * Prepare fresh frozen plasma (07/04/2018 9:51 AM CDT) Product name Thawed Plasma Pheresis Pt 1 [facility] DEPARTMENT OF PATHOLOGY AND GENOMIC MEDICINE Unit number [id number] [facility] DEPARTMENT OF PATHOLOGY AND GENOMIC MEDICINE Product code [id number] [facility] DEPARTMENT OF PATHOLOGY AND GENOMIC MEDICINE Dispense status Transfused [facility] DEPARTMENT OF PATHOLOGY AND GENOMIC MEDICINE Blood expiration date [facility] OF PATHOLOGY AND GENOMIC MEDICINE Blood type code 8400 [facility] DEPARTMENT OF PATHOLOGY AND GENOMIC MEDICINE Blood type AB POSITIVE [facility] DEPARTMENT OF PATHOLOGY AND GENOMIC MEDICINE Product name Thawed Plasma Pheresis Pt 1 [facility] DEPARTMENT OF PATHOLOGY AND GENOMIC MEDICINE Unit number [id number] [facility] DEPARTMENT OF PATHOLOGY AND GENOMIC MEDICINE Product code [id number] [facility] DEPARTMENT OF PATHOLOGY AND GENOMIC MEDICINE Dispense status Transfused [facility] DE[facility]MENT OF PATHOLOGY AND GENOMIC MEDICINE Blood expiration date [facility] DEPARTMENT OF PATHOLOGY AND GENOMIC MEDICINE Blood type code 8400 [facility] DEPARTMENT OF PATHOLOGY AND GENOMIC MEDICINE Blood type AB POSITIVE [facility] DEPARTMENT OF PATHOLOGY AND GENOMIC MEDICINE Performing Organization Address City/[facility] Phone Number [facility] [place] [address] [place] [phone] PATHOLOGY AND GENOMIC MEDICINE * Type and screen (07/04/2018 9:51 AM CDT) Only the most recent of 2 results within the time period is included. ABO grouping O [facility] DEPARTMENT OF PATHOLOGY AND GENOMIC MEDICINE Rh type NEG [facility] DEPARTMENT OF PATHOLOGY AND GENOMIC MEDICINE Antibody screen (gel) NEG [facility] DEPARTMENT OF PATHOLOGY AND GENOMIC MEDICINE Specimen Blood Performing Organization Address City/[facility]/Zipcode Phone Number [facility] DE[facility]MENT [address] [place] [address]. [place] [address] PATHOLOGY AND GENOMIC MEDICINE * Comprehensive metabolic panel (07/04/2018 9:30 AM CDT) Only the most recent of 3 results within the time period is included. Sodium 139 135 - 150 mEq/L [facility] DEPARTMENT OF PATHOLOGY AND GENOMIC MEDICINE Potassium 4.2 3.5 - 5.0 mEq/L [facility] DEPARTMENT OF PATHOLOGY AND GENOMIC MEDICINE Chloride 100 98 - 112 mEq/L [facility] DEPARTMENT OF PATHOLOGY AND GENOMIC MEDICINE CO2 27 24 - 31 mmol/L [facility] DEPARTMENT OF PATHOLOGY AND GENOMIC MEDICINE Anion gap 12@ANIO 7 - 15 mEq/L [facility] DEPARTMENT OF PATHOLOGY AND GENOMIC MEDICINE BUN 12 7 - 18 mg/dL [facility] DEPARTMENT OF PATHOLOGY AND GENOMIC MEDICINE Creatinine 0.80 0.50 - 0.90 mg/dL [facility] DEPARTMENT OF PATHOLOGY AND GENOMIC MEDICINE Glucose 88 65 - 100 mg/dL [facility] DEPARTMENT OF PATHOLOGY AND GENOMIC MEDICINE Calcium 9.2 8.3 - 10.2 mg/dL [facility] DEPARTMENT OF PATHOLOGY AND GENOMIC MEDICINE Protein 7.7 6.3 - 8.3 g/dL [facility] DEPARTMENT OF PATHOLOGY AND GENOMIC MEDICINE Albumin 3.8 3.5 - 5.0 g/dL [facility] DEPARTMENT OF PATHOLOGY AND GENOMIC MEDICINE A/G ratio 1.0 0.7 - 3.8 [facility] DEPARTMENT OF PATHOLOGY AND GENOMIC MEDICINE Alkaline phosphatase 71 0 - 104 U/L [facility] DEPARTMENT OF PATHOLOGY AND GENOMIC MEDICINE AST 20 10 - 35 U/L [facility] DEPARTMENT OF PATHOLOGY AND GENOMIC MEDICINE ALT <2 (L) 5 - 50 U/L [facility] DEPARTMENT OF PATHOLOGY AND GENOMIC MEDICINE Total bilirubin 0.3 0.2 - 1.2 mg/dL [facility] DEPARTMENT OF PATHOLOGY AND GENOMIC MEDICINE Specimen Plasma specimen Performing Organization Address City/State/[facility] Phone Number [facility] [address] [place] [address] PATHOLOGY AND GENOMIC MEDICINE * CRITICAL CARE (07/04/2018 9:25 AM CDT) Narrative Performed At Sagrario Miller MD 07/05/20187:02 AM Critical Care Performed by: SAGRARIO MILLER Authorized by: SAGRARIO MILLER Critical care provider statement: Critical care time (minutes):35 Critical care time was exclusive of:Separately billable procedures and treating other patients Critical care was necessary to treat or prevent imminent or life-threatening deterioration of the following conditions:Respiratory failure Critical care was time spent personally by me on the following activities:Development of treatment plan with patient or surrogate, discussions with primary provider, evaluation of patient's response to treatment, examination of patient, obtaining history from patient or surrogate, re-evaluation of patient's condition, pulse oximetry, ordering and review of radiographic studies, ordering and review of laboratory studies and ordering and performing treatments and interventions Best 'yes' if you are taking over critical care for this patient from another provider.: no * XR Chest 1 Vw Portable (08/07/2017 7:27 AM PHOTO MASK INSPECTOR) Narrative Performed At EXAMINATION:XR CHEST 1 VW PORTABLE [facility] CLINICAL HISTORY:SHORTNESS OF BREATH COMPARISON:Most Recent Prior at [facility] IMPRESSION: The pulmonary vascular is slightly more prominent. The inspiratory effort is more shallow. Increasing atelectasis at the lung bases. No pneumothorax. [facility]-[id number] Procedure Note Hm Interface, Radiology Results Incoming - 08/07/2017 7:31 AM PHOTO MASK INSPECTOR EXAMINATION: XR CHEST 1 VW PORTABLE CLINICAL HISTORY: SHORTNESS OF BREATH COMPARISON: Most Recent Prior at [facility] IMPRESSION: The pulmonary vascular is slightly more prominent. The inspiratory effort is more shallow. Increasing atelectasis at the lung bases. No pneumothorax. [facility]-[id number] Performing Organization Address City/[facility]/Zipcode Phone Number [facility] [address] [place] [address] * Estimated GFR (08/07/2017 6:24 AM PHOTO MASK INSPECTOR) GFR Non Af Amer 76 mL/min/1.73 m2 [facility] DEPARTMENT OF PATHOLOGY AND GENOMIC MEDICINE GFR Af Amer >90 mL/min/1.73 m2 [facility] DEPARTMENT OF Comment: PATHOLOGY AND Chronic kidney disease: <60 GENOMIC MEDICINE mL/min/1.73m2 Kidney failure: <15 mL/min/1.73m2 The estimated GFR is calculated from the IDMS-traceable Modification of Diet in Renal Disease Equation. The accuracy of the calculation is poor when the creatinine is normal. Calculated values >90 mL/min/1.73m2 are not reported. This equation has not been validated in children (<18 years), women, the elderly (>70 years), or ethnic groups other than Caucasians and Americans. Specimen Plasma specimen Performing Organization Address City/State/Zipcode Phone Number [facility] DEPARTMENT OF [facility] [place] [address] PATHOLOGY AND GENOMIC MEDICINE * ECG 12 lead (08/07/2017 5:52 AM PHOTO MASK INSPECTOR) Ventricular rate 75 [facility] Atrial rate 75 [facility] PA interval 172 [facility] QRSD interval 86 [facility] QT interval 404 [facility] QTC interval 451 [facility] P axis 1 53 [facility] QRS axis 1 59 [facility] T wave axis 52 [facility] EKG impression Normal sinus rhythm-Normal [facility] MUSE ECG-In automated comparison with ECG of 13-MAY-2017 03:00,-No significant change was found- Performing Organization Address City/State/Zipcode Phone Number [facility] [address] [place] [address] after 07/22/2017 Insurance Payer Benefit Subscriber ID Type Phone Address Plan / Group HUMANA HUMANA xxxxxxxxx HMO HMO/POS/EP O/OPEN ACCESS Advance Directives Patient has advance care planning documents on file. For more information, parviz lino contact: Bertram Gorman [address] [place] [address]
--- OUTSIDE RECORDS SUMMARY | 2018-07-23 16:03 | XMS REPORT ---
Author Author KATHRYN MEDRANO Organization [employer] Address Unknown Phone Unavailable Care Team Providers Care Nutrition Intern Name Role Phone KATHRYN MEDRANO CP Unavailable Allergies, Adverse Reactions, Alerts Substance Reaction Event Type N.K.D.A. Info Not Available Non Drug Allergy Problems Problem Type Condition Code Onset Dates Condition Status Problem Hereditary angioedema D84.1 Active Problem Obesity (BMI 30-39.9) E66.9 Active Assessment Encounter for screening mammogram for malignant neoplasm of breast Z12.31 Active Assessment Asymptomatic menopausal state Z78.0 Active Assessment Encounter for general adult medical examination without abnormal findings Z00.00 Active Assessment Encounter for immunization Z23 Active Medications Medication Code System Code Instructions Start Date End Date Status Dosage Tessalon Perles ND 60222315728 100 mg orally 3 times a day Jun 04, 2018 Active 1 cap(s) Pneumovax 23 NDC [id number] - intramuscularly once Jun 27, 2018 Active 0.5 mL Benadryl ND 97098926672 25 mg orally bid Active 1 cap(s) Fluvirin [id number] NDC 0 IM once Jun 19, 2018 Active as directed Liza 24 Hour Allergy NDC 65958726576 180 mg orally once a day prn Jun 04, 2018 Active 1 tab(s) ibuprofen ND 24772295735 800 mg orally daily prn Active 1 tab(s) Shingrix NDC 0 0.5 mL IM 0.5 mL IM x 1 followed by 0.5 mL IM 2-6 months after dose # 1 Jun 19, 2018 Active as directed Vital Signs Date/Time: Jun 27, 2018 Height 64 in Temperature 98.2 F Pulse 73 /min BMI 37.07 Index Weight 216 lbs Results No Known Results Summary Purpose [employer] Submission
--- OUTSIDE RECORDS SUMMARY | 2018-07-23 16:03 | XMS REPORT | Continuity of Care Document ---
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 Maikel Annalise Obesity Active Problem 07/09/2018 Maikel Annalise Encounter for screening mammogram for malignant neoplasm of breast Active Diagnosis 07/09/2018 Maikel Annalise Asymptomatic menopausal state Active Diagnosis 07/09/2018 Maikel Annalise Encounter for general adult medical examination without abnormal findings Active Diagnosis 07/09/2018 Maikel Annalise Encounter for immunization Active Diagnosis 07/09/2018 Maikel Annalise Medications Medication Details Route Status Patient Instructions Ordering Provider Order Date Source Pneumovax 23 0.5 mL intramuscularly Active - intramuscularly once YARIMA 06/27/2018 Maikel Annalise Fluvirin [id number] as directed IM Active IM once YARIMA 06/19/2018 Maikel Annalise Shingrix as directed IM Active 0.5 mL IM 0.5 mL IM x 1 followed by 0.5 mL IM 2-6 months after dose # 1 YARIMA 06/19/2018 Maikel Annalise Tessalon Perles 1 cap(s) orally Active 100 mg orally 3 times a day YARIMA 06/04/2018 Maikel Annalise Liza 24 Hour Allergy 1 tab(s) orally Active 180 mg orally once a day prn YARIMA 06/04/2018 Maikel Annalise Benadryl 1 cap(s) orally Active 25 mg orally bid YARI Maikel Annalise ibuprofen 1 tab(s) orally Active 800 mg orally daily prn YARI Maikel Annalise Allergies, Adverse Reactions, Alerts Substance Category Reaction Severity Reaction type Status Date Reported Comments Source N.K.D.A. Adverse Reaction Info Not Available Adverse Reaction Active 06/27/2018 Maikel Annalise Immunizations Immunization Date Given Site Status Last Updated Comments Source Results Order Name Results Value Reference Range Date Interpretation Comments Source Vital Signs Vital Sign Value Date Comments Source Height 64 06/27/2018 Maikel Annalise Temperature Oral (F) 98.2 F 06/27/2018 Maikel Annalise Weight 216 06/27/2018 Maikel Annalise Encounters Location Location Details Encounter Type Encounter Number Reason For Visit Attending Provider ADM Date DC Date Status Source Procedures Procedure Code Date Perfomer Comments Source
--- NOTE | 2018-07-23 17:37 | Diagnostic Imaging Report ---
EXAM: XR CHEST 2 VIEWS DATE: 07/23/2018 4:47 PM INDICATION: Pain COMPARISON: None FINDINGS: Lines and Tubes: None Heart and Mediastinum: No acute cardiomediastinal findings. Lungs and Pleura: Minimal opacities lung bases, predominantly linear. Bones and Soft Tissues: No acute findings. IMPRESSION: 1. Probable basilar atelectasis with infectious process possible given history. Signed by: Dr. Roderick Carlin MD on 07/23/2018 5:34 PM
[2018-07-23] MEDS ORDERED: CLONIDINE HCL 0.2 MG TAB PO ONE (19:00)
[2018-07-23] MEDS ORDERED: CEFTRIAXONE SOD 1 GM VIAL IM ONE (19:00)
[2018-07-23] MEDS ORDERED: LIDOCAINE HCL 1% LOCAL INJ 20 ML VIAL ONE (19:51)
[2018-07-23] MEDS ORDERED: CEFDINIR300 MG PO (20:13)
[2018-07-23] MEDS ORDERED: HYDROCHLOROTH12.5 MG PO (20:13)
[2018-07-23] MEDS ORDERED: AMLODIPINE BESY10 MG PO (20:13)
[2018-07-23 20:14] VITALS: BP 121/63
== END 2018-07-23 20:33 | disposition home or self-care (01) ==
LOC: ER 16:01
DX: R05 Cough (principal); J15.9 Unspecified bacterial pneumonia; I10 Essential (primary) hypertension
CPT/HCPCS: 71046; 99283; J0696; J2001

== ENCOUNTER → 2018-12-25 | Day surgery (SDC) | payer OTHER ==
[~2018-12-25] MED LIST: AMLODIPINE BESY10 MG PO; BENADRYL25 M1 PO; CEFDINIR300 MG PO; CLINDAMYCIN HC150 MG PO; FENTANYL CITRATE/PF 100MCG/2 ML INJ ONE; HYDROCHLOROTH12.5 MG PO; IBUPROFEN400 MG PO; LIDOCAINE HCL 2% LOCAL INJ 5 ML SDV VIAL INJ ONE; PROPOFOL IV EMULSION 10 MG/ML 20 ML VIAL ONE
--- OUTSIDE RECORDS SUMMARY | 2018-12-25 09:48 | XMS REPORT | Continuity of Care Document ---
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 [facility] Medications Medication Details Route Status Patient Instructions Ordering Provider Order Date Source Pneumovax 23 0.5 mL intramuscularly Active - intramuscularly once YARIMA 06/27/2018 Maikel Annalise Fluvirin [id number] as directed IM Active IM once YARIMA [...] mg orally daily prn YARI Maikel Annalise Amlodipine Besylate 10 Mg Tablet Daily Active [facility] Cefdinir (Omnicef) 300 Mg Capsule Twice A Day Active [facility] Hydrochlorothiazide 12.5 Mg Tablet Daily Active [facility] Allergies, Adverse Reactions, Alerts Substance Category Reaction Severity Reaction type Status Date Reported Comments Source N.K.D.A. Adverse Reaction Info Not Available Adverse Reaction Active 06/27/2018 Maikel Annalise Immunizations Immunization Date Given Site Status Last Updated Comments Source Results Order Name Results Value Reference Range Date Interpretation Comments Source Blood leukocytes automated count (number/volume) 11.11 4.8 - 10.8 01/06/2018 [facility] Blood erythrocytes automated count (number/volume) 3.90 3.6 - 5.1 01/06/2018 [facility] Blood hemoglobin measurement (moles/volume) 11.7 12.0 - 16.0 01/06/2018 [facility] Automated blood hematocrit (volume fraction) 35.4 34.2 - 44.1 01/06/2018 [facility] Automated erythrocyte mean corpuscular volume 90.8 81 - 99 01/06/2018 [facility] Automated erythrocyte mean corpuscular hemoglobin (mass per erythrocyte) 30.0 28 - 32 01/06/2018 [facility] Automated erythrocyte mean corpuscular hemoglobin concentration measurement (mass/volume) 33.1 31 - 35 01/06/2018 [facility] RDW BldCo-Rto 13.4 11.7 - 14.4 01/06/2018 [facility] Automated blood platelet count (count/volume) 305 140 - 360 01/06/2018 [facility] Automated blood segmented neutrophil count as percentage of total leukocytes 83.8 38.7 - 80.0 01/06/2018 [facility] Automated blood lymphocyte count as percentage ot total leukocytes 13.5 18.0 - 39.1 01/06/2018 [facility] Automated blood monocyte count as percentage of total leukocytes 2.1 4.4 - 11.3 01/06/2018 [facility] Automated blood eosinophil count as percentage of total leukocytes 0.0 0.0 - 6.0 01/06/2018 [facility] Automated blood basophil count as percentage of total leukocytes 0.1 0.0 - 1.0 01/06/2018 [facility] IM GRANULOCYTES % 0.5 0.0 - 1.0 01/06/2018 [facility] Automated blood neutrophil count 9.3 2.1 - 6.9 01/06/2018 [facility] Blood lymphocytes count (number/volume) 1.5 1.0 - 3.2 01/06/2018 [facility] Blood monocytes automated count (number/volume) 0.2 0.2 - 0.8 01/06/2018 [facility] Automated blood eosinophil count 0.0 0.0 - 0.4 01/06/2018 [facility] Automated blood basophil count (count/volume) 0.0 0.0 - 0.1 01/06/2018 [facility] Absolute Immature Granulocyte (auto 0.06 0 - 0.1 01/06/2018 [facility] Serum or plasma sodium measurement (moles/volume) 139 136 - 145 01/06/2018 [facility] Serum or plasma potassium measurement (moles/volume) 3.9 3.5 - 5.1 01/06/2018 [facility] Serum or plasma chloride measurement (moles/volume) 107 98 - 107 01/06/2018 [facility] Serum or plasma carbon dioxide, total measurement (moles/volume) 23 22 - 29 01/06/2018 [facility] Serum or plasma anion gap 12.9 8 - 16 01/06/2018 [facility] Serum or plasma urea nitrogen measurement (mass/volume) 15 7 - 26 01/06/2018 [facility] Serum or plasma creatinine measurement (mass/volume) 0.79 0.57 - 1.11 01/06/2018 [facility] Serum or plasma urea nitrogen/creatinine mass ratio 19 6 - 25 01/06/2018 [facility] Estimated glomerular filtration rate (GFR) determination > 60 60 01/06/2018 [facility] Glucose measurement 134 74 - 118 01/06/2018 [facility] Serum or plasma calcium measurement (mass/volume) 9.3 8.4 - 10.2 01/06/2018 [facility] Serum or plasma total bilirubin measurement (mass/volume) 0.4 0.2 - 1.2 01/06/2018 [facility] Aspartate Amino Transf (AST/SGOT) 13 5 - 34 01/06/2018 [facility] Serum or plasma alanine aminotransferase measurement (enzymatic activity/volume) 7 0 - 55 01/06/2018 [facility] Serum or plasma protein measurement (mass/volume) 7.9 6.5 - 8.1 01/06/2018 [facility] Serum or plasma albumin measurement (mass/volume) 3.5 3.5 - 5.0 01/06/2018 [facility] Plasma globulin measurement (mass/volume) 4.4 2.3 - 3.5 01/06/2018 [facility] Serum or plasma albumin/globulin mass ratio 0.8 0.8 - 2.0 01/06/2018 [facility] Serum or plasma alkaline phosphatase measurement (enzymatic activity/volume) 70 40 - 150 01/06/2018 [facility] Prothrombin time (PT) in platelet poor plasma by coagulation assay 13.1 11.9 - 14.5 01/05/2018 [facility] INR in Platelet poor plasma by Coagulation assay 1.07 01/05/2018 [facility] Urine color determination YELLOW YELLOW 01/05/2018 [facility] Urine clarity CLEAR CLEAR 01/05/2018 [facility] Specific gravity of Urine by Test strip 1.005 1.010 - 1.025 01/05/2018 [facility] Urine pH measurement by automated test strip 5 5 - 7 01/05/2018 [facility] Urine leukocyte esterase detection by dipstick 1+ NEGATIVE 01/05/2018 [facility] Urine nitrite detection NEGATIVE NEGATIVE 01/05/2018 [facility] Urine protein measurement by test strip (mass/volume) NEGATIVE NEGATIVE 01/05/2018 [facility] Urine glucose detection NEGATIVE NEGATIVE 01/05/2018 [facility] Urine ketones detection by automated test strip NEGATIVE NEGATIVE 01/05/2018 [facility] Urine urobilinogen measurement by test strip (mass/volume) 0.2 0.2 - 1 01/05/2018 [facility] Urine total bilirubin measurement (mass/volume) NEGATIVE NEGATIVE 01/05/2018 [facility] Urine erythrocytes detection TRACE NEGATIVE 01/05/2018 [facility] Automated urine sediment leukocyte count by microscopy (number/high power field) 6-10 0 - 5 01/05/2018 [facility] Erythrocytes detection in urine sediment by light microscopy 0-5 0 - 5 01/05/2018 [facility] Bacteria detection in urine sediment by light microscopy RARE NONE 01/05/2018 [facility] Epithelial cells detection in urine sediment by light microscopy MANY NONE 01/05/2018 [facility] Activated partial thromboplastin time (aPTT) in platelet poor plasma bycoagulation assay 26.4 23.8 - 35.5 01/05/2018 [facility] Vital Signs Vital Sign Value Date Comments Source Height 64 06/27/2018 Maikel Annalise Temperature Oral (F) 98.2 F 06/27/2018 Maikel Annalise Weight 216 06/27/2018 Maikel Annalise Encounters Location Location Details Encounter Type Encounter Number Reason For Visit Attending Provider ADM Date DC Date Status Source Discharged Inpatient [id number] CHRIS PRETTY MD 01/05/2018 01/07/2018 [facility] Departed Emergency Room [id number] MARIZA MAY MD 07/23/2018 07/23/2018 [facility] Procedures Procedure Code Date Perfomer Comments Source X-ray of chest, two views [id number] 07/23/2018 YADIRA [facility]
--- OUTSIDE RECORDS SUMMARY | 2018-12-25 09:48 | XMS REPORT | Clinical Summary ---
Author Author [facility] Address Unknown Phone Unavailable Care Team Providers Care Cost And Risk Analysis Manager Name Role Phone Maikel Woody MD PCP Allergies No Known Allergies Medications End Date Status Medication Sig Dispensed Refills Start Date Active diphenhydrAMINE Take 25 mg by 0 (BENADRYL) 25 mg tablet mouth nightly as needed for sleep. Active ibuprofen (ADVIL,MOTRIN) Take 600 mg 0 800 MG tablet by mouth every 6 (six) hours as needed for mild pain. 07/04/2018 Discontinued predniSONE (DELTASONE) 1 Take 1 mg by 0 mg tablet mouth daily. 07/04/2018 Discontinued doxycycline (VIBRAMYCIN) Take 100 mg 0 100 MG oral dosage form by mouth 2 (two) times a day. 08/04/2018 famotidine (PEPCID) 20 MG Take 1 tablet 60 tablet 0 tablet (20 mg total) 8 by mouth 2 (two) times a day for 30 days. 07/10/2018 methylPREDNISolone follow 21 tablet 0 (MEDROL, AIDAN,) 4 mg package 8 tablet directions 10/05/2018 levoFLOXacin (LEVAQUIN) Take 1 tablet 10 tablet 0 750 MG tablet (750 mg 9 total) by mouth daily for 10 days. 10/05/2018 benzonatate (TESSALON) Take 1 20 capsule 0 200 MG capsule capsule (200 9 mg total) by mouth 2 (two) times a day as needed for cough for up to 10 days. 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 Encounters Care Team Description Date Type Specialty Parish Lyles MD Berberian, Esteban N., MD Hereditary angioedema (HCC) (Primary Dx); Angioedema, initial encounter 11/14/2018 Emergency Surgical Intensive Care Parish Lyles MD Bavare, Arusha Amod, MD Shortness of breath (Primary Dx); Pneumonia due to infectious organism, unspecified laterality, unspecified part of lung 09/24/2018 Emergency General Internal Medicine - 09/25/2018 Maikel Woody MD Screening for malignant neoplasm of breast 07/16/2018 Hospital Radiology Encounter Maikel Woody MD Screening for malignant neoplasm of breast (Primary Dx) 07/09/2018 Transcribe Access Orders Yimi Roca-MD Maris Victor, Salvador Mims MD Hereditary angioedema (HCC) (Primary Dx) 07/04/2018 Hospital Intensive Care - Encounter 07/05/2018 Audi White MD Hereditary angioedema (Primary Dx) 05/15/2018 Emergency Emergency Medicine - 05/16/2018 after 12/24/2017 Immunizations Name Dates Previously Given Next Due FLUCELVAX QUAD PF (0.5mL 05/13/2017 syringe) Social History Date Tobacco Use Types Packs/Day Years Used Never Smoker Smokeless Tobacco: Never Used Alcohol Use Drinks/Week oz/Week Comments Yes "occasionally" Sex Assigned at Date Recorded Not on file Industry Job Start Date Occupation Not on file Not on file Not on file Travel End Travel History Travel Start No recent travel history available. Last Filed Vital Signs Time Taken Vital Sign Reading 11/14/2018 6:00 PM CDT Blood Pressure 148/72 11/14/2018 7:45 PM CDT Pulse 96 11/14/2018 12:00 PM CDT Temperature 36.7 C (98 F) 11/14/2018 7:45 PM CDT Respiratory Rate 31 11/14/2018 7:45 PM CDT Oxygen Saturation 97% - Inhaled Oxygen - Concentration 11/14/2018 3:13 AM CDT Weight 95.3 kg (210 lb) 11/14/2018 3:13 AM CDT Height 162.6 cm (5' 4") 11/14/2018 3:13 AM CDT Body Mass Index 36.05 Plan of Treatment Health Maintenance Due Date Last Done Comments CERVICAL CANCER SCREENING 1989 COLON CANCER SCREENING 2018 SHINGLES VACCINES (#1) 2018 INFLUENZA VACCINE 04/02/2019 05/13/2017 BREAST CANCER SCREENING 07/16/2020 07/16/2018, 07/01/2017, 07/01/2017 Procedures Comments Procedure Name Priority Date/Time Associated Diagnosis TRANSFUSE FRESH FROZEN STAT 11/14/2018 PLASMA 12:18 PM CDT TROPONIN Timed 11/14/2018 10:33 AM CDT TRANSFUSE FRESH FROZEN STAT 11/14/2018 PLASMA 9:30 AM CDT TROPONIN Timed 11/14/2018 6:17 AM CDT PREPARE FRESH FROZEN STAT 11/14/2018 PLASMA 3:35 AM CDT TYPE AND SCREEN STAT 11/14/2018 3:35 AM CDT YEHUDA TITER Routine 11/14/2018 3:25 AM CDT C-REACTIVE PROTEIN Routine 11/14/2018 3:25 AM CDT HEPATIC FUNCTION PANEL Routine 11/14/2018 3:25 AM CDT C4 COMPLEMENT COMPONENT Routine 11/14/2018 3:25 AM CDT SEDIMENTATION RATE Routine 11/14/2018 3:25 AM CDT YEHUDA Routine 11/14/2018 3:25 AM CDT ESTIMATED GFR STAT 11/14/2018 3:25 AM CDT PARTIAL THROMBOPLASTIN STAT 11/14/2018 TIME (PTT) 3:25 AM CDT PROTHROMBIN TIME WITH INR STAT 11/14/2018 3:25 AM CDT TROPONIN STAT 11/14/2018 3:25 AM CDT COMPREHENSIVE METABOLIC STAT 11/14/2018 PANEL 3:25 AM CDT HC COMPLETE BLD COUNT STAT 11/14/2018 W/AUTO DIFF 3:25 AM CDT UT CRITICAL CARE, E/M Routine 11/14/2018 30-74 MINUTES 3:[address] ANGIOGRAM PE CHEST STAT 09/25/2018 1:48 PM INSURANCE SALES AGENT MANUAL DIFFERENTIAL Routine 09/25/2018 5:54 AM INSURANCE SALES AGENT HEMOGLOBIN A1C Routine 09/25/2018 5:54 AM INSURANCE SALES AGENT CBC WITH PLATELET AND Routine 09/25/2018 DIFFERENTIAL 5:54 AM INSURANCE SALES AGENT ESTIMATED GFR Routine 09/25/2018 4:54 AM INSURANCE SALES AGENT LIPID PANEL Routine 09/25/2018 4:54 AM INSURANCE SALES AGENT BASIC METABOLIC PANEL Routine 09/25/2018 4:54 AM INSURANCE SALES AGENT PROTHROMBIN TIME WITH INR Routine 09/25/2018 4:54 AM INSURANCE SALES AGENT LACTIC ACID LEVEL, SEPSIS Timed 09/25/2018 - NOW AND REPEAT 2X EVERY 4:54 AM INSURANCE SALES AGENT 3 HOURS TROPONIN Timed 09/25/2018 4:54 AM INSURANCE SALES AGENT LACTIC ACID LEVEL, SEPSIS Timed 09/25/2018 - NOW AND REPEAT 2X EVERY 1:40 AM INSURANCE SALES AGENT 3 HOURS TROPONIN Timed 09/25/2018 1:40 AM INSURANCE SALES AGENT ESTIMATED GFR STAT 09/24/2018 9:08 PM INSURANCE SALES AGENT LACTIC ACID LEVEL, SEPSIS STAT 09/24/2018 - NOW AND REPEAT 2X EVERY 9:08 PM INSURANCE SALES AGENT 3 HOURS B NATRIURETIC PEPTIDE STAT 09/24/2018 9:08 PM INSURANCE SALES AGENT TROPONIN STAT 09/24/2018 9:08 PM INSURANCE SALES AGENT COMPREHENSIVE METABOLIC STAT 09/24/2018 PANEL 9:08 PM INSURANCE SALES AGENT HC COMPLETE BLD COUNT STAT 09/24/2018 W/AUTO DIFF 9:08 PM INSURANCE SALES AGENT RESPIRATORY PATHOGEN Routine 09/24/2018 PANEL 8:16 PM INSURANCE SALES AGENT INFLUENZA ANTIGEN TEST, Routine 09/24/2018 REFLEX NEGATIVE TO RPP 8:16 PM INSURANCE SALES AGENT BLOOD CULTURE, AEROBIC & Routine 09/24/2018 ANAEROBIC 7:18 PM INSURANCE SALES AGENT BLOOD CULTURE, AEROBIC & Routine 09/24/2018 ANAEROBIC 7:05 PM INSURANCE SALES AGENT ECG ED PRELIMINARY Routine 09/24/2018 INTERPRETATION 7:02 PM INSURANCE SALES AGENT UT CRITICAL CARE, E/M Routine 09/24/2018 30-74 MINUTES 7:02 PM INSURANCE SALES AGENT GRAM STAIN STAT 09/24/2018 7:00 PM INSURANCE SALES AGENT URINE CULTURE STAT 09/24/2018 7:00 PM INSURANCE SALES AGENT URINALYSIS SCREEN AND STAT 09/24/2018 MICROSCOPY, WITH REFLEX 6:36 PM INSURANCE SALES AGENT TO CULTURE XR CHEST 2 VW STAT 09/24/2018 6:20 PM INSURANCE SALES AGENT ECG 12-LEAD STAT 09/24/2018 5:36 PM INSURANCE SALES AGENT MAMMO BREAST SCREEN Routine 07/16/2018 Screening for malignant TOMOSYNTHESIS BILATERAL 3:16 PM INSURANCE SALES AGENT neoplasm of breast ESTIMATED GFR Routine 07/05/2018 [...] STAT 07/04/2018 W/AUTO DIFF 9:30 AM CDT UT CRITICAL CARE, E/M Routine 07/04/2018 30-74 MINUTES 9:25 AM CDT ESTIMATED GFR STAT 05/16/2018 12:21 AM CDT COMPREHENSIVE METABOLIC STAT 05/16/2018 PANEL 12:21 AM CDT HC COMPLETE BLD COUNT STAT 05/16/2018 W/AUTO DIFF 12:21 AM CDT after 12/24/2017 Results * Transfuse fresh frozen plasma (11/14/2018 12:18 PM CDT) Only the most recent of 5 results within the time period is included. * Troponin (11/14/2018 10:33 AM CDT) Only the most recent of 6 results within the time period is included. Troponin <0.30 0.00 - 0.30 ng/mL [facility] Comment: [facility] 0.11 - 1.49 ng/mlMay indicate increased risk of acute coronary syndrome. >=1.5 ng/ml Consistent with acute myocardial infarction. The diagnostic value of a single normal or non-diagnostic result is questionable.Serial samples at 2-6 hour intervals are required to rule out acute myocardial injury. Specimen Plasma specimen Performing Organization Address City/State/Zipcode Phone Number [facility] [place] [address] PATHOLOGY AND GENOMIC MEDICINE [address] [place] * Prepare fresh frozen plasma, 2 Units (11/14/2018 3:35 AM CDT) Only the most recent of 2 results within the time period is included. Product name Thawed Plasma Pheresis Pt 1 [facility] Unit number [id number] [facility] Product code [id number] [facility] Dispense status Transfused [facility] Blood expiration date [facility] Blood type code 5100 [facility] Blood type O POSITIVE [facility] Product name Thawed Plasma Pheresis Pt 2 [facility] Unit number [id number] [facility] Product code [id number] [facility] Dispense status Transfused [facility] Blood expiration date [facility] Blood type code 5100 [facility] Blood type O POSITIVE [facility] Specimen Blood Performing Organization Address City/[facility]/[place] [address] PATHOLOGY AND [facility] MEDICINE [address] [place] * Type and screen (11/14/2018 3:35 AM CDT) Only the most recent of 2 results within the time period is included. ABO grouping O [facility] Rh type NEG [facility] Antibody screen (gel) NEG [facility] Specimen Blood Performing Organization Address City/[facility]/Zipcode Phone Number [address] [place] [address] PATHOLOGY AND [facility] MEDICINE [address] * Estimated GFR (11/14/2018 3:25 AM CDT) Only the most recent of 6 results within the time period is included. Estimated GFR 86 mL/min/1.73 m2 [facility] Comment: [facility] CatergoryUnitsInte rpretation G1 >=90 Normal or high G2 60-89Mildly decreased [id number] Mildly to moderately decreased L4t17-33 Moderately to severely decreased G4 15-29Severely decreased G5 <15Kidney failure The eGFR was calculated using the Chronic Kidney Disease Epidemiology Collaboration (CKD-EPI) equation. Interpretation is based on recommendations of the National Kidney Foundation-Kidney Disease Outcomes Quality Initiative (NKF-KDOQI) published in 2014. Specimen Plasma specimen Performing Organization Address City/[facility]/Zipcode Phone Number [facility] [address] [place] [phone] PATHOLOGY AND GENOMIC MEDICINE [address] * YEHUDA titer (11/14/2018 3:25 AM CDT) YEHUDA titer 1:160 (A) Not-Detected [facility] YEHUDA pattern Speckle (A) Not-Detected [facility] Specimen Blood Performing Organization Address [facility] Phone Number [facility] DEPARTMENT OF [address] [place] [address] PATH[address] * Partial thromboplastin time, activated (11/14/2018 3:25 AM CDT) PTT 27.7 23.0 - 36.0 sec [facility] Comment: [facility] PTT therapeutic range for unfractionated heparin is 61.0-112.0 seconds which corresponds to Anti-Xa 0.3-0.7 U/ml. Note:Change in Panic Value The PTT Panic Value is changing from 110 sec. to 100 sec. due to new instrumentation and reagents. Correlation studies have been performed to validate this result. Specimen Blood Performing Organization Address [facility]/Zipcode Phone Number [facility] [address] [place] [address] PATHOLOGY AND GENOMIC MEDICINE [address] * Sedimentation rate (11/14/2018 3:25 AM CDT) Sedimentation rate 55 (H) 0 - 20 mm/hr [facility] Specimen Blood Performing Organization Address City/[facility]/Zipcode Phone Number [facility] [address] [phone] PATHOLOGY AND GENOMIC MEDICINE [address] * Prothrombin time with INR (11/14/2018 3:25 AM CDT) Only the most recent of 2 results within the time period is included. Prothrombin time 12.5 11.5 - 14.5 sec [facility] INR 0.96 [facility] Comment: [facility] For patients on anticoagulant therapy, reference ranges below: Indication: INR Value Treatment of Venous Thrombosis, 2.0-3.0 pulmonary emboli, or prophylaxis of a venous thrombosis, or systemic emboli. High dose, high risk patients 3.0-4.5 with mechanical valves. NOTE:INR values over 3.0 are sometimes associated with gastrointestinal hemorrhage, especially values over 4.0. Specimen Blood Performing Organization Address [facility] Cent[facility]ode Phone Number [facility] [address] [place] [address] PATHOLOGY AND [facility] MEDICINE [address] * CBC with platelet and differential (11/14/2018 3:25 AM CDT) Only the most recent of 6 results within the time period is included. WBC 9.3 4.2 - 11.0 k/uL [facility] RBC 4.32 4.04 - 5.86 m/uL [facility] HGB 13.0 11.5 - 15.3 g/dL [facility] HCT 40.4 34.0 - 45.0 % [facility] MCV 93.5 80.0 - 98.0 fL [facility] MCH 30.1 27.0 - 34.0 pg [facility] MCHC 32.2 31.5 - 36.5 g/dL [facility] RDW - SD 44.9 37.0 - 51.0 fL [facility] MPV 9.4 7.4 - 10.4 fL [facility] Platelet count 346 150 - 400 k/uL [facility] Nucleated RBC 0.00 /100 WBC [facility] Neutrophils 55.7 36.0 - 66.0 % [facility] Lymphocytes 33.4 24.0 - 44.0 % [facility] Monocytes 7.7 (H) 0.0 - 6.0 % [facility] Eosinophils 2.6 0.0 - 6.0 % [facility] Basophils 0.4 0.0 - 1.2 % [facility] Immature granulocytes 0.2 0.0 - 1.0 % [facility] Specimen Blood Performing Organization Address City/[facility] Centercode Phone Number [facility] [place] [address] PATHOLOGY AND GENOMIC MEDICINE [address] * C4 complement component (11/14/2018 3:25 AM CDT) C4 complement 36 10 - 40 mg/dL [facility] Specimen Blood Performing Organization Address City/[facility] Centercode Phone Number [facility] [place] [address] PATHOLOGY AND GENOMIC MEDICINE [address] * C-reactive protein (11/14/2018 3:25 AM CDT) CRP 0.28 0.00 - 0.50 mg/dL [facility] Specimen Plasma specimen Performing Organization Address City/[facility]ode Phone Number [facility] [place] [address] PATHOLOGY AND GENOMIC MEDICINE [address] * YEHUDA (11/14/2018 3:25 AM CDT) YEHUDA screen Positive (A) Negative [facility] Specimen Blood Performing Organization Address City/[facility] Centercode Phone Number [facility] [place] [address] PATHOLOGY AND GENOMIC MEDICINE [address] * Hepatic function panel (11/14/2018 3:25 AM CDT) Albumin 3.7 3.5 - 5.0 g/dL [facility] Total bilirubin <0.3 0.2 - 1.2 mg/dL [facility] Bilirubin direct <0.2 0.0 - 0.4 mg/dL [facility] Alkaline phosphatase 85 0 - 104 U/L [facility] Protein 7.6 6.3 - 8.3 g/dL [facility] ALT 6 5 - 50 U/L [facility] AST 17 10 - 35 U/L [facility] Specimen Plasma specimen Performing Organization Address City/State/Zipcode Phone Number [facility] [address] [place] [address] PATHOLOGY AND GENOMIC MEDICINE [place] [address] [address] [place], [place] [phone] [place] [address] * Comprehensive metabolic panel (11/14/2018 3:25 AM CDT) Only the most recent of 4 results within the time period is included. Sodium 141 135 - 150 mEq/L [facility] Potassium 4.1 3.5 - 5.0 mEq/L [facility] Chloride 100 98 - 112 mEq/L [facility] CO2 27 24 - 31 mmol/L [facility] Anion gap 14@ANIO 7 - 15 mEq/L [facility] BUN 19 (H) 7 - 18 mg/dL [facility] Creatinine 0.90 0.50 - 0.90 mg/dL [facility] Glucose 103 (H) 65 - 100 mg/dL [facility] Calcium 9.7 8.3 - 10.2 mg/dL [facility] Protein 7.9 6.3 - 8.3 g/dL [facility] Albumin 3.9 3.5 - 5.0 g/dL [facility] A/G ratio 1.0 0.7 - 3.8 [facility] Alkaline phosphatase 82 0 - 104 U/L [facility] AST 15 10 - 35 U/L [facility] ALT 6 5 - 50 U/L [facility] Total bilirubin <0.3 0.2 - 1.2 mg/dL [facility] Specimen Plasma specimen Performing Organization Address City/State/Zipcode Phone Number [facility] [address] [place] [phone] PATHOLOGY AND GENOMIC MEDICINE [place] [address], [place] [phone] [place] [address] * CRITICAL CARE (11/14/2018 3:19 AM CDT) Narrative Performed At Parish Lyles MD 11/14/20189:09 AM Critical Care Performed by: Parish Lyles MD Authorized by: Parish Lyles MD Critical care provider statement: Critical care time (minutes):35 Critical care time was exclusive of:Separately billable procedures and treating other patients Critical care was necessary to treat or prevent imminent or life-threatening deterioration of the following conditions: angioedema getting blood products and going to icu. Critical care was time spent personally by me on the following activities:Blood draw for specimens, development of treatment plan with patient or surrogate, discussions with consultants, discussions with primary provider, evaluation of patient's response to treatment, ordering and performing treatments and interventions, ordering and review of laboratory studies, pulse oximetry, re-evaluation of patient's condition, review of old charts and examination of patient Best 'yes' if you are taking over critical care for this patient from another provider.: no * CT Angiogram Pe Chest (09/25/2018 1:48 PM INSURANCE SALES AGENT) Narrative Performed At EXAMINATION:CT ANGIOGRAM PE CHEST HM [facility] CLINICAL HISTORY:PE suspectedlow pretest prob COMPARISON:CT of the chest with contrast dated 09/19/2010 TECHNIQUE:CT angiographic images of the chest with intravenous contrast using pulmonary embolism protocol.Computerized reformatted images and 3D MIPS images were obtained and archived.Up-to-date CT equipment and radiation dose reduction techniques were utilized. FINDINGS: PULMONARY ARTERIES:Evaluation of the pulmonary arteries is limited related to suboptimal contrast bolus timing. A large central pulmonary embolus is not identified. No definite lobar or segmental pulmonary emboli are identified although evaluation is limited as described. LUNGS and PLEURA:Areas of scarring and chronic consolidation in the lower lobes are stable. There is now more ill-defined nodular infiltrate in both lower lobes. No consolidation or pleural effusion. HEART and MEDIASTINUM:The heart is not enlarged. No mediastinal lymphadenopathy. The thoracic aorta is not aneurysmal. Left upper lobe pulmonary vein drains into the left brachiocephalic vein. ABDOMEN:Limited views of the upper abdomen are unremarkable. BONES and SOFT TISSUES:No acute osseous abnormality or destructive osseous lesion. There is mild degenerative disc disease of the thoracic spine. IMPRESSION: 1. Evaluation of the pulmonary arteries is limited related to suboptimal contrast bolus timing. A large central pulmonary embolus is not identified. No definite lobar or segmental pulmonary emboli are identified although evaluation is limited as described. 2. Chronic appearing consolidation in the lower lobes which is stable when compared the prior study and likely sequela from prior infection. 3. New nodular infiltrate in the lower lobes suggesting of acute on chronic multifocal infectious or inflammatory process. Follow-up recommended to ensure resolution. 4. 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 [facility]-[id number] Procedure Note [facility], Radiology Results Incoming - 09/25/2018 2:03 PM INSURANCE SALES AGENT EXAMINATION: CT ANGIOGRAM PE CHEST CLINICAL HISTORY: PE suspected low pretest prob COMPARISON: CT of the chest with contrast dated 09/19/2010 TECHNIQUE: CT angiographic images of the chest with intravenous contrast using pulmonary embolism protocol. Computerized reformatted images and 3D MIPS images were obtained and archived. Up-to-date CT equipment and radiation dose reduction techniques were utilized. FINDINGS: PULMONARY ARTERIES: Evaluation of the pulmonary arteries is limited related to suboptimal contrast bolus timing. A large central pulmonary embolus is not identified. No definite lobar or segmental pulmonary emboli are identified although evaluation is limited as described. LUNGS and PLEURA: Areas of scarring and chronic consolidation in the lower lobes are stable. There is now more ill-defined nodular infiltrate in both lower lobes. No consolidation or pleural effusion. HEART and MEDIASTINUM: The heart is not enlarged. No mediastinal lymphadenopathy. The thoracic aorta is not aneurysmal. Left upper lobe pulmonary vein drains into the left brachiocephalic vein. ABDOMEN: Limited views of the upper abdomen are unremarkable. BONES and SOFT TISSUES: No acute osseous abnormality or destructive osseous lesion. There is mild degenerative disc disease of the thoracic spine. IMPRESSION: 1. Evaluation of the pulmonary arteries is limited related to suboptimal contrast bolus timing. A large central pulmonary embolus is not identified. No definite lobar or segmental pulmonary emboli are identified although evaluation is limited as described. 2. Chronic appearing consolidation in the lower lobes which is stable when compared the prior study and likely sequela from prior infection. 3. New nodular infiltrate in the lower lobes suggesting of acute on chronic multifocal infectious or inflammatory process. Follow-up recommended to ensure resolution. 4. 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 [facility]-[id number] Performing Organization Address City/[facility]/Zipcode Phone Number [facility] [address] [place] [address] * Manual differential (09/25/2018 5:54 AM INSURANCE SALES AGENT) Manual differential PERFORMED [facility] Neutrophils 82.0 (H) 36.0 - 66.0 % [facility] Lymphocytes 14.0 (L) 24.0 - 44.0 % [facility] Monocytes 3.0 0.0 - 6.0 % [facility] Eosinophils 0.0 0.0 - 6.0 % [facility] Basophils 0.0 0.0 - 1.2 % [facility] Metamyelocytes 0 0 - 1 % [facility] Myelocytes 1 0 - 1 % [facility] Promyelocytes 0 0 - 1 % [facility] Platelet slide review [facility] adequate [facility] Performing Organization Address City/[facility]/Zipcode Phone Number [facility] [address] [place] [address] PATHOLOGY AND GENOMIC MEDICINE [place] [address] [address] [place], [place] [phone] [place] [address] * Hemoglobin A1c (09/25/2018 5:54 AM INSURANCE SALES AGENT) Hemoglobin A1C 5.5 4.0 - 6.0 % [facility] [facility] Comment: [facility] Less than 6% - Goal of therapy for Type II Diabetes Less than 7%-Goal of therapy for Type I Diabetes Less than 8%-Accepta ble control for Type I or Type II Diabetes Greater than 8%-Unacceptabl e control; action indicated. ([id number]) Specimen Blood Performing Organization Address City/[facility]/Zipcode Phone Number [facility] OF [address] [place] [address] PATHOLOGY AND GENOMIC MEDICINE [place] [address] [address] * Lactic acid level, SEPSIS - Now and repeat 2x every 3 hours (09/25/2018 4:54 AM INSURANCE SALES AGENT) Only the most recent of 3 results within the time period is included. Lactic acid 2.7 (H)Comment: Results called 0.5 - 2.2 mmol/L [facility] to and read back by [facility] VILLATORO AT 06:34 09/25/2018 BY LB. Specimen Blood Performing Organization Address City/[facility] Cent[facility] Phone Number [facility] [address] [place] [address] PATHOLOGY AND GENOMIC MEDICINE [place] [address] [address] * Lipid panel (09/25/2018 4:54 AM INSURANCE SALES AGENT) Cholesterol 270 (H) 0 - 199 mg/dL [facility] Triglycerides 98 0 - 149 mg/dL [facility] HDL cholesterol 59 40 - 9,999 mg/dL [facility] LDL cholesterol 231 (H)Comment: Result 0 - 99 mg/dL [facility] obtained by direct LDL [facility] measurement Lipid panel See below [facility] interpretation Comment: [facility] Total Cholesterol (mg/dL) LDL Cholesterol (mg/dL) <200 Desirable <100 Optimal 200-239Borderline -[id number] 29Near or above optimal >=240High 130-159Borderline- high 160-189High >=190Very high HDL Cholesterol (mg/dL) Triglycerides (mg/dL) <40Low <150 Normal >=60 High 150-199Borderline- high 200-499High >=500Very high Risk Catergories that modify LDL goals. Risk Catergories LDL goal (mg/dL) CHD and CHD risk equivalent <100 (10-year risk >20%) Multiple (2+) risk factors <130 (10-year risk=<20%) 0-1 risk factors <160 (<10-year risk) Defining levels of lipids in metabolic syndrome Triglycerides >=150 mg/dL HDL Cholesterol Men <40 mg/dL Women <50 mg/dL Non-HDL cholesterol is a second target for therapy in persons with high triglycerides (>=200 mg/dL) Specimen Plasma specimen Performing Organization Address [facility] Centercoin Phone Number [place] [id number] [place] [address] PATHOLOGY AND GENOMIC MEDICINE [facility] Donna [address]otti [address] * Basic metabolic panel (09/25/2018 4:54 AM INSURANCE SALES AGENT) Only the most recent of 2 results within the time period is included. Sodium 138 135 - 150 mEq/L [facility] Potassium 4.6 3.5 - 5.0 mEq/L [facility] Chloride 100 98 - 112 mEq/L [facility] CO2 23 (L) 24 - 31 mmol/L [facility] Anion gap 15@ANIO 7 - 15 mEq/L [facility] BUN 13 7 - 18 mg/dL [facility] Creatinine 0.70 0.50 - 0.90 mg/dL [facility] Glucose 161 (H) 65 - 100 mg/dL [facility] Calcium 9.6 8.3 - 10.2 mg/dL [facility] Specimen Plasma specimen Performing Organization Address [facility] Centercode Phone Number [place] [address] [place] [address] PATHOLOGY AND GENOMIC MEDICINE [facility] Donna [address]otti [address] * B natriuretic peptide (09/24/2018 9:08 PM INSURANCE SALES AGENT) BNP 5 0 - 100 pg/mL [facility] Specimen Blood Performing Organization Address City/State/Zipcode Phone Number [facility] [address] [place] [address] PATHOLOGY AND GENOMIC MEDICINE [facility] [address] * Respiratory pathogen panel (09/24/2018 8:16 PM INSURANCE SALES AGENT) Respiratory pathogen Negative for all pathogens [facility] panel tested: HOSPITAL Negative for Adenovirus Negative for Coronavirus HKU1 Negative for Coronavirus NL63 Negative for Coronavirus 229E Negative for Coronavirus OC43 Negative for Human Metapneumovirus Negative for Rhinovirus/Enterovirus Negative for Influenza A Negative for Influenza A/H1 Negative for Influenza A/H3 Negative for Influenza A/H1-2009 Negative for Influenza B Negative for Parainfluenza Virus 1 Negative for Parainfluenza Virus 2 Negative for Parainfluenza Virus 3 Negative for Parainfluenza Virus 4 Negative for Respiratory Syncytial Virus Negative for Bordetella pertussis Negative for Chlamydophila pneumoniae Negative for Mycoplasma pneumoniae This real-time PCR assay detects the presence of nucleic acids (RNA or DNA) for the respiratory pathogens listed. A result of "Not-detected" does not exclude the possibility of the presence of one or more pathogens at concentrations less than the detectable limits of the assay. Comment: Specimen Information Specimen Source: Nares Specimen Site: Left Specimen Nares - Left Performing Organization Address City/State/Zipcode Phone Number [facility] DEPARTMENT OF [address] [place] [phone] PATHOLOGY AND GENOMIC MEDICINE [address] * Influenza antigen test, reflex negative to RPP (09/24/2018 8:16 PM INSURANCE SALES AGENT) Influenza antigen Negative for Influenza A/B [facility] Comment: Specimen Information Specimen Source: Nares Specimen Site: Left Specimen Nares - Left Performing Organization Address City/State/Zipcode Phone Number [facility] [address] [place] [address] PATHOLOGY AND GENOMIC MEDICINE [facility] [address] * Blood culture, aerobic & anaerobic (09/24/2018 7:18 PM INSURANCE SALES AGENT) Only the most recent of 2 results within the time period is included. Blood culture isolate No growth after 5 days of BERTRAM GORMAN incubation. HOSPITAL Comment: Specimen Information Specimen Source: Blood Specimen Site: LH Specimen Blood Performing Organization Address City/State/Zipcode Phone Number [facility] DEPARTMENT OF [address] [place] [address] PATHOLOGY AND GENOMIC MEDICINE [facility] [address] [place] [address] HOSPITAL * ECG ED Preliminary Interpretation - Not an Order (09/24/2018 7:02 PM INSURANCE SALES AGENT) Narrative Performed At Parish Lyles MD 09/25/20185:55 PM ECG ED Preliminary Interpretation - Not an Order Performed by: Parish Lyles MD Authorized by: Parish Lyles MD ECG reviewed by ED Physician in the absence of a pump tester: yes Interpretation: Interpretation: abnormal Rate: ECG rate:78 ECG rate assessment: normal Rhythm: Rhythm: sinus rhythm Ectopy: Ectopy: none QRS: QRS axis:Right QRS intervals:Normal Conduction: Conduction: normal ST segments: ST segments:Normal T waves: T waves: inverted Inverted:III * CRITICAL CARE (09/24/2018 7:02 PM INSURANCE SALES AGENT) Narrative Performed At Parish Lyles MD 09/25/20185:55 PM Critical Care Performed by: Parish Lyles MD Authorized by: Parish Lyles MD Critical care provider statement: Critical care time (minutes):38 Critical care time was exclusive of:Separately billable procedures and treating other patients Critical care was necessary to treat or prevent imminent or life-threatening deterioration of the following conditions:Sepsis (sirs with source) Critical care was time spent personally by me on the following activities:Blood draw for specimens, development of treatment plan with patient or surrogate, ordering and performing treatments and interventions, ordering and review of laboratory studies, discussions with consultants, ordering and review of radiographic studies, pulse oximetry, discussions with primary provider, evaluation of patient's response to treatment, re-evaluation of patient's condition, review of old charts and examination of patient Best 'yes' if you are taking over critical care for this patient from another provider.: no * Gram stain (09/24/2018 7:00 PM INSURANCE SALES AGENT) Gram stain result Few WBC's BERTRAM SCOTTIST Many Gram variable rods HOSPITAL Comment: Specimen Information Specimen Source: Urine Specimen Site: Clean catch Specimen Urine Performing Organization Address City/[facility]/Zipcode Phone Number [facility] DEPARTMENT OF [address] [place] [address] PATHOLOGY AND GENOMIC MEDICINE [address] * Urine culture (09/24/2018 7:00 PM INSURANCE SALES AGENT) Urine culture isolate Mixed holger 10-5 col/cc [facility] Comment: HOSPITAL Specimen Information Specimen Source: Urine Specimen Site: Clean catch Specimen Urine Performing Organization Address [facility] Phone Number [address] [address] PATHOLOGY AND GENOMIC MEDICINE [address] * Urinalysis screen and microscopy, with reflex to culture (09/24/2018 6:36 PM INSURANCE SALES AGENT) Specimen site Clean catch [facility] Color, UA Yellow [facility] Appearance, UA Clear [facility] Specific gravity, UA 1.014 1.001 - 1.035 [facility] pH, UA 6.0 5.0 - 8.5 [facility] Protein, UA Negative Negative [facility] Glucose, UA Negative Negative [facility] Ketones, UA Negative Negative [facility] Bilirubin, UA Negative Negative [facility] Blood, UA Negative Negative [facility] Nitrite, UA Negative Negative [facility] Urobilinogen, UA Negative <2.0 [facility] Leukocyte esterase, UA Large (A) Negative [facility] Epithelial cells, UA Many /HPF [facility] WBC, UA 3 0 - 5 /HPF [facility] RBC, UA 1 0 - 5 /HPF [facility] Bacteria, UA None seen None seen [facility] Yeast, UA None seen [facility] Yeast with pseudohyphae, None seen [facility] Specimen Urine Performing Organization Address City/[facility]/Zipcode Phone Number [facility] OF [address] [place] [address] PATHOLOGY AND GENOMIC MEDICINE [place] [address] [place] [address] [facility] * XR Chest 2 Vw (09/24/2018 6:20 PM INSURANCE SALES AGENT) Narrative Performed At EXAMINATION:XR CHEST 2 VW RADIANT CLINICAL HISTORY:cough COMPARISON:08/07/2017 TECHNIQUE: Frontal and lateral views of the chest obtained. IMPRESSION: Cardiomediastinal silhouette and pulmonary vasculature within normal limits. Mild bibasilar atelectasis and or scarring. Lungs and pleural spaces otherwise clear. [id number] Procedure Note Hm Interface, Radiology Results Incoming - 09/24/2018 6:27 PM INSURANCE SALES AGENT EXAMINATION: XR CHEST 2 VW CLINICAL HISTORY: cough COMPARISON: 08/07/2017 TECHNIQUE: Frontal and lateral views of the chest obtained. IMPRESSION: Cardiomediastinal silhouette and pulmonary vasculature within normal limits. Mild bibasilar atelectasis and or scarring. Lungs and pleural spaces otherwise clear. [id number] Performing Organization Address [facility] Centercoin Phone Number [facility] [address] [place] [address] * ECG 12 lead (09/24/2018 5:36 PM INSURANCE SALES AGENT) Ventricular rate 78 [facility] Atrial rate 78 [facility] UT interval 158 [facility] QRSD interval 96 [facility] QT interval 384 [facility] QTC interval 437 [facility] P axis 1 63 [facility] QRS axis 1 93 [facility] T wave axis 5 [facility] EKG impression Normal sinus rhythm-Rightward [facility] axis-Nonspecific T wave abnormality-Abnormal ECG-No previous ECGs available- Narrative Performed At Performing Organization Address [facility] Center[facility] Phone Number [facility] MUSE [address] [place] [address] * Mammo Breast Screen Tomosynthesis Bilateral (07/16/2018 3:16 PM INSURANCE SALES AGENT) Narrative Performed At PROCEDURE: MAMMO BREAST SCREEN TOMOSYNTHESIS BILATERAL RADIANT Computer aided detection was utilized for the [...] 1:NEGATIVE This facility is accredited by the [employer] for Mammography. A negative x-ray report should not delay biopsy if a dominant or clinically suspicious mass is present.Not all cancers are identified by x-ray. [id number] Performing Organization Address City/[facility]/Zipcode Phone Number [facility] [address] [place] [address] * Phosphorus level (07/05/2018 4:25 AM CDT) Phosphorus 3.0 2.4 - 4.5 mg/dL [facility] OF PATHOLOGY AND GENOMIC MEDICINE Specimen Plasma specimen Performing Organization Address [facility] Center[facility] Phone Number [facility] [place] [address] PATHOLOGY AND GENOMIC MEDICINE * Magnesium level (07/05/2018 4:25 AM CDT) Magnesium 2.00 1.60 - 2.60 mg/dL [facility] OF PATHOLOGY AND GENOMIC MEDICINE Specimen Plasma specimen Performing Organization Address [facility] Center[facility] Phone Number [facility] [place] [address] PATHOLOGY AND GENOMIC MEDICINE * Ionized calcium (07/05/2018 4:25 AM CDT) pH 7.41 [facility] OF PATHOLOGY AND GENOMIC MEDICINE Ionized calcium 1.15 1.11 - 1.32 mmol/L [facility] OF PATHOLOGY AND GENOMIC MEDICINE Specimen Plasma specimen Performing Organization Address [facility] [place] [address] PATHOLOGY AND GENOMIC MEDICINE * POC glucose (07/04/2018 5:20 PM CDT) Only the most recent of 2 results within the time period is included. POC glucose 142 (H) 65 - 100 mg/dL [facility] Comment: PATHOLOGY AND Meter ID: [id number] GENOMIC MEDICINE Director Mobile: Orquidea Keene Performing Organization Address City/[facility] Medical [place] [address] PATHOLOGY AND GENOMIC MEDICINE * CRITICAL CARE (07/04/2018 9:25 AM CDT) Narrative Performed At Sagrario Roca MD 07/05/20187:02 AM Critical Care Performed by: SAGRARIO ROCA Authorized by: SAGRARIO ROCA Critical care provider statement: Critical care time [...] for this patient from another provider.: no after 12/24/2017 Insurance Payer Benefit Subscriber ID Type Phone Address Plan / Group [employer] CIGNA OPEN xxxxxxxxxxx O ACCESS/NET WORK Advance Directives Patient has advance care planning documents on file. For more information, parviz lino contact: Bertram Gorman [address] [place] [address]
[2018-12-25 12:10] VITALS: BP 119/74
== END | disposition home or self-care (01) ==
LOC: OR 09:44
PROVIDERS: ATTEND Internal Medicine
DX: Z12.11 Encounter for screening for malignant neoplasm of colon (principal); D12.0 Benign neoplasm of cecum; R14.0 Abdominal distension (gaseous); D84.1 Defects in the complement system; Z01.810 Encounter for preprocedural cardiovascular examination; Z68.36 Body mass index [BMI] 36.0-36.9, adult
CPT/HCPCS: 45380; 93005; J2001; J2704; 45378; 45385

== ENCOUNTER 2019-04-09 08:01 | Emergency (ER) | payer OTHER ==
[~2019-04-09] VITALS: Ht 162.6 cm; Wt 101.6 kg
[~2019-04-09 08:01] MED LIST changes: -FENTANYL CITRATE/PF 100MCG/2 ML INJ ONE; -LIDOCAINE HCL 2% LOCAL INJ 5 ML SDV VIAL INJ ONE; -PROPOFOL IV EMULSION 10 MG/ML 20 ML VIAL ONE
--- OUTSIDE RECORDS SUMMARY | 2019-04-09 08:03 | XMS REPORT | Continuity of Care Document ---
Author Author [facility] [address] Address Unknown Phone Unavailable Care Team Providers Care Department Mgr Name Role Phone [employer] Unavailable Unavailable Problems Problem Status Onset Date Classification Date Reported Comments Source Hereditary angioedema Active Problem 07/09/2018 eCW: Maikle Annalise Obesity Active Problem 07/09/2018 eCW: Maikel Annalise Encounter for screening mammogram for malignant neoplasm of breast Active Diagnosis 07/09/2018 eCW: Maikel Annalise Asymptomatic menopausal state Active Diagnosis 07/09/2018 eCW: Maikel Annalise Encounter for general adult medical examination without abnormal findings Active Diagnosis 07/09/2018 eCW: Maikel Annalise Encounter for immunization Active Diagnosis 07/09/2018 eCW: Maikel Annalise Angioedema, hereditary Active Problem 07/24/2018 [facility] Medications Medication Details Route Status Patient Instructions Ordering Provider Order Date Source Pneumovax 23 0.5 mL intramuscularly Active - intramuscularly once YARIMA 06/27/2018 eCW: Maikel Annalise Fluvirin 1251-5314 as directed IM Active IM once RIMA 06/19/2018 eCW: Maikel Annalise Shingrix as directed IM Active 0.5 mL IM 0.5 mL IM x 1 followed by 0.5 mL IM 2-6 months after dose # 1 YARIMA 06/19/2018 eCW: Maikel Annalise Tessalon Perles 1 cap(s) orally Active 100 mg orally 3 times a day YARIMA 06/04/2018 eCW: Maikel Annalise Liza 24 Hour Allergy 1 tab(s) orally Active 180 mg orally once a day prn YARIMA 06/04/2018 eCW: Maikel Ananlise Benadryl 1 cap(s) orally Active 25 mg orally bid YARIMA eCW: Maikel Annalise ibuprofen 1 tab(s) orally Active 800 mg orally daily prn YARI eCW: Maikel Annalise Amlodipine Besylate 10 Mg Tablet Daily Active [facility] Cefdinir (Omnicef) 300 Mg Capsule Twice A Day Active [facility] Hydrochlorothiazide 12.5 Mg Tablet Daily Active [facility] Allergies, Adverse Reactions, Alerts Substance Category Reaction Severity Reaction type Status Date Reported Comments Source N.K.D.A. Adverse Reaction Info Not Available Adverse Reaction Active 06/27/2018 eCW: Maikel Annalise Immunizations No Data Provided for This Section Results Order Name Results Value Reference Range Date Interpretation Comments Source Blood leukocytes automated count (number/volume) 11.11 4.8 - 10.8 01/06/2018 [facility] Blood erythrocytes automated count (number/volume) 3.90 3.6 - 5.1 01/06/2018 [facility] Blood hemoglobin measurement (moles/volume) 11.7 12.0 - 16.0 01/06/2018 [facility] Automated blood hematocrit (volume fraction) 35.4 34.2 - 44.1 01/06/2018 [facility] Automated erythrocyte mean corpuscular volume 90.8 81 - 99 01/06/2018 [facility] Automated erythrocyte mean corpuscular hemoglobin (mass per erythrocyte) 30.0 28 - 32 01/06/2018 [facility] Automated erythrocyte mean corpuscular hemoglobin concentration measurement (mass/volume) 33.1 31 - 35 01/06/2018 [facility] RDW BldCo-Rto 13.4 11.7 - 14.4 01/06/2018 [facility] Automated blood platelet count (count/volume) 305 140 - 360 01/06/2018 [facility] Automated blood segmented neutrophil count as percentage of total leukocytes 83.8 38.7 - 80.0 01/06/2018 [facility] Automated blood lymphocyte count as percentage ot total leukocytes 13.5 18.0 - 39.1 01/06/2018 [facility] Automated blood monocyte count as percentage of total leukocytes 2.1 4.4 - 11.3 01/06/2018 [facility] Automated blood eosinophil count as percentage of total leukocytes 0.0 0.0 - 6.0 01/06/2018 [facility] Automated blood basophil count as percentage of total leukocytes 0.1 0.0 - 1.0 01/06/2018 [facility] IM GRANULOCYTES % 0.5 0.0 - 1.0 01/06/2018 [facility] Automated blood neutrophil count 9.3 2.1 - 6.9 01/06/2018 [facility] Blood lymphocytes count (number/volume) 1.5 1.0 - 3.2 01/06/2018 [facility] Blood monocytes automated count (number/volume) 0.2 0.2 - 0.8 01/06/2018 [facility] Automated blood eosinophil count 0.0 0.0 - 0.4 01/06/2018 [facility] Automated blood basophil count (count/volume) 0.0 0.0 - 0.1 01/06/2018 [facility] Absolute Immature Granulocyte (auto 0.06 0 - 0.1 01/06/2018 [facility] Serum or plasma sodium measurement (moles/volume) 139 136 - 145 01/06/2018 [facility] Serum or plasma potassium measurement (moles/volume) 3.9 3.5 - 5.1 01/06/2018 [facility] Serum or plasma chloride measurement (moles/volume) 107 98 - 107 01/06/2018 [facility] Serum or plasma carbon dioxide, total measurement (moles/volume) 23 22 - 29 01/06/2018 [facility] Serum or plasma anion gap 12.9 8 - 16 01/06/2018 [facility] Serum or plasma urea nitrogen measurement (mass/volume) 15 7 - 26 01/06/2018 [facility] Serum or plasma creatinine measurement (mass/volume) 0.79 0.57 - 1.11 01/06/2018 [facility] Serum or plasma urea nitrogen/creatinine mass ratio 19 6 - 25 01/06/2018 [facility] Estimated glomerular filtration rate (GFR) determination > 60 60 01/06/2018 [facility] Glucose measurement 134 74 - 118 01/06/2018 [facility] Serum or plasma calcium measurement (mass/volume) 9.3 8.4 - 10.2 01/06/2018 [facility] Serum or plasma total bilirubin measurement (mass/volume) 0.4 0.2 - 1.2 01/06/2018 [facility] Aspartate Amino Transf (AST/SGOT) 13 5 - 34 01/06/2018 [facility] Serum or plasma alanine aminotransferase measurement (enzymatic activity/volume) 7 0 - 55 01/06/2018 [facility] Serum or plasma protein measurement (mass/volume) 7.9 6.5 - 8.1 01/06/2018 [facility] Serum or plasma albumin measurement (mass/volume) 3.5 3.5 - 5.0 01/06/2018 [facility] Plasma globulin measurement (mass/volume) 4.4 2.3 - 3.5 01/06/2018 [facility] Serum or plasma albumin/globulin mass ratio 0.8 0.8 - 2.0 01/06/2018 [facility] Serum or plasma alkaline phosphatase measurement (enzymatic activity/volume) 70 40 - 150 01/06/2018 [facility] Prothrombin time (PT) in platelet poor plasma by coagulation assay 13.1 11.9 - 14.5 01/05/2018 [facility] INR in Platelet poor plasma by Coagulation assay 1.07 01/05/2018 [facility] Urine color determination YELLOW YELLOW 01/05/2018 [facility] Urine clarity CLEAR CLEAR 01/05/2018 [facility] Specific gravity of Urine by Test strip 1.005 1.010 - 1.025 01/05/2018 [facility] Urine pH measurement by automated test strip 5 5 - 7 01/05/2018 [facility] Urine leukocyte esterase detection by dipstick 1+ NEGATIVE 01/05/2018 [facility] Urine nitrite detection NEGATIVE NEGATIVE 01/05/2018 [facility] Urine protein measurement by test strip (mass/volume) NEGATIVE NEGATIVE 01/05/2018 [facility] Urine glucose detection NEGATIVE NEGATIVE 01/05/2018 [facility] Urine ketones detection by automated test strip NEGATIVE NEGATIVE 01/05/2018 [facility] Urine urobilinogen measurement by test strip (mass/volume) 0.2 0.2 - 1 01/05/2018 [facility] Urine total bilirubin measurement (mass/volume) NEGATIVE NEGATIVE 01/05/2018 [facility] Urine erythrocytes detection TRACE NEGATIVE 01/05/2018 [facility] Automated urine sediment leukocyte count by microscopy (number/high power field) 6-10 0 - 5 01/05/2018 [facility] Erythrocytes detection in urine sediment by light microscopy 0-5 0 - 5 01/05/2018 [facility] Bacteria detection in urine sediment by light microscopy RARE NONE 01/05/2018 [facility] Epithelial cells detection in urine sediment by light microscopy MANY NONE 01/05/2018 [facility] Activated partial thromboplastin time (aPTT) in platelet poor plasma bycoagulation assay 26.4 23.8 - 35.5 01/05/2018 [facility] Pathology Reports No Data Provided for This Section Diagnostic Reports No Data Provided for This Section Consultation Notes No Data Provided for This Section Discharge Summaries No Data Provided for This Section History and Physicals No Data Provided for This Section Vital Signs Vital Sign Value Date Comments Source Height 64 06/27/2018 eCW: Maikel Annalise Temperature Oral (F) 98.2 F 06/27/2018 eCW: Maikel Annalise Weight 216 06/27/2018 eCW: Maikel Annalise Encounters Location Location Details Encounter Type Encounter Number Reason For Visit Attending Provider ADM Date DC Date Status Source Discharged Inpatient [id number] CHRIS PRETTY MD 01/05/2018 01/07/2018 [facility] Departed Emergency Room [id number] MARIZA MAY MD 07/23/2018 07/23/2018 [facility] Procedures Procedure Code Date Perfomer Comments Source X-ray of chest, two views [id number] 07/23/2018 YADIRA [facility] Assessment and Plan No Data Provided for This Section Plan of Care Plan of Care Date Source Discharge Date 07/23/18 8:33pm Disposition HOME, SELF-CARE Condition at Discharge Stable Instructions/Education Provided Hypertension Pneumonia - Bacterial Forms Provided Work/School Excuse Prescriptions See Medication Section Referrals Maikel Woody Order Date: Call for an appointment Additional Instructions/Education FOLLOW-UP WITH YOUR PCP IN 1 WEEK 07/23/2018 [facility] Social History Social History Date Source Social History Problem Response Recorded Date/Time Onset Date Status Hx Psychiatric Problems No 01/05/2018 8:30pm Not Applicable Not Applicable Hx Eating Disorder No 01/05/2018 8:30pm Not Applicable Not Applicable Hx Substance Use Disorder No 01/05/2018 8:30pm Not Applicable Not Applicable Hx Depression No 01/05/2018 8:30pm Not Applicable Not Applicable Hx Alcohol Use No 01/05/2018 8:30pm Not Applicable Not Applicable Hx Substance Use Treatment No 01/05/2018 8:30pm Not Applicable Not Applicable Hx Physical Abuse No 01/05/2018 8:30pm Not Applicable Not Applicable Smoking Status Start Date Stop Date Never Smoker 07/23/2018 [facility] Family History No Data Provided for This Section Advance Directives Order Name Results Value Date Source Advance Directives Advance Directives Directive Response Recorded Date/Time Does the patient have an advance directive? No 01/05/18 8:30pm Do you have a Directive to Physician? No 07/23/18 6:01pm Do you have a Medical Power of Press Shop Supervisor? No 07/23/18 6:01pm Do you have an out of hospital Do Not Resuscitate Order? No 07/23/18 6:01pm Do you have any special needs we should be aware of? No 07/23/18 6:01pm Do you have a support person here with you today? Yes 07/23/18 6:01pm Did patient receive Notice of Privacy Practices? Yes 07/23/18 6:01pm Did patient receive patient rights and responsibilities? Yes 07/23/18 6:01pm 07/23/2018 [facility] Functional Status No Data Provided for This Section
--- OUTSIDE RECORDS SUMMARY | 2019-04-09 08:03 | XMS REPORT | Clinical Summary ---
Author Author [facility] Address Unknown Phone Unavailable Care Team Providers Care Pipe Testing Technician Name Role Phone Salvador Pollock MD PCP Allergies No Known Allergies Medications [...] Encounters Care Team Description Date Type Specialty Carlos Lopez MD Lung mass (Primary Dx) 01/14/2019 Transcribe Access Orders Carlos Lopez MD Abnormal findings on diagnostic imaging of lung (Primary Dx) 01/01/2019 Transcribe Access Orders Carlos Lopez MD Bronchial pneumonia (Primary Dx); Abnormal finding on lung imaging 01/01/2019 Transcribe Access Orders Parish Lyles MD Berberian, Esteban N., MD [...] 05/15/2018 Emergency Emergency Medicine - 05/16/2018 after 04/08/2018 Immunizations Name Dates Previously Given Next Due [...] Health Maintenance Due Date Last Done Comments COLONOSCOPY SCREENING 2018 SHINGLES VACCINES (#1) 2018 INFLUENZA [...] STAT 11/14/2018 W/AUTO DIFF 3:25 AM CDT DE CRITICAL CARE, E/M Routine 11/14/2018 30-74 MINUTES 3:[address] ANGIOGRAM PE CHEST STAT 09/25/2018 1:48 PM TRAVELING CONSTRUCTION SUPERINTENDENT MANUAL DIFFERENTIAL Routine 09/25/2018 5:54 AM TRAVELING CONSTRUCTION SUPERINTENDENT HEMOGLOBIN A1C Routine 09/25/2018 5:54 AM TRAVELING CONSTRUCTION SUPERINTENDENT CBC WITH PLATELET AND Routine 09/25/2018 DIFFERENTIAL 5:54 AM TRAVELING CONSTRUCTION SUPERINTENDENT ESTIMATED GFR Routine 09/25/2018 4:54 AM TRAVELING CONSTRUCTION SUPERINTENDENT LIPID PANEL Routine 09/25/2018 4:54 AM TRAVELING CONSTRUCTION SUPERINTENDENT BASIC METABOLIC PANEL Routine 09/25/2018 4:54 AM TRAVELING CONSTRUCTION SUPERINTENDENT PROTHROMBIN TIME WITH INR Routine 09/25/2018 4:54 AM TRAVELING CONSTRUCTION SUPERINTENDENT LACTIC ACID LEVEL, SEPSIS Timed 09/25/2018 - NOW AND REPEAT 2X EVERY 4:54 AM TRAVELING CONSTRUCTION SUPERINTENDENT 3 HOURS TROPONIN Timed 09/25/2018 4:54 AM TRAVELING CONSTRUCTION SUPERINTENDENT LACTIC ACID LEVEL, SEPSIS Timed 09/25/2018 - NOW AND REPEAT 2X EVERY 1:40 AM TRAVELING CONSTRUCTION SUPERINTENDENT 3 HOURS TROPONIN Timed 09/25/2018 1:40 AM TRAVELING CONSTRUCTION SUPERINTENDENT ESTIMATED GFR STAT 09/24/2018 9:08 PM TRAVELING CONSTRUCTION SUPERINTENDENT LACTIC ACID LEVEL, SEPSIS STAT 09/24/2018 - NOW AND REPEAT 2X EVERY 9:08 PM TRAVELING CONSTRUCTION SUPERINTENDENT 3 HOURS B NATRIURETIC PEPTIDE STAT 09/24/2018 9:08 PM TRAVELING CONSTRUCTION SUPERINTENDENT TROPONIN STAT 09/24/2018 9:08 PM TRAVELING CONSTRUCTION SUPERINTENDENT COMPREHENSIVE METABOLIC STAT 09/24/2018 PANEL 9:08 PM TRAVELING CONSTRUCTION SUPERINTENDENT HC COMPLETE BLD COUNT STAT 09/24/2018 W/AUTO DIFF 9:08 PM TRAVELING CONSTRUCTION SUPERINTENDENT RESPIRATORY PATHOGEN Routine 09/24/2018 PANEL 8:16 PM TRAVELING CONSTRUCTION SUPERINTENDENT INFLUENZA ANTIGEN TEST, Routine 09/24/2018 REFLEX NEGATIVE TO RPP 8:16 PM TRAVELING CONSTRUCTION SUPERINTENDENT BLOOD CULTURE, AEROBIC & Routine 09/24/2018 ANAEROBIC 7:18 PM TRAVELING CONSTRUCTION SUPERINTENDENT BLOOD CULTURE, AEROBIC & Routine 09/24/2018 ANAEROBIC 7:05 PM TRAVELING CONSTRUCTION SUPERINTENDENT ECG ED PRELIMINARY Routine 09/24/2018 INTERPRETATION 7:02 PM TRAVELING CONSTRUCTION SUPERINTENDENT DE CRITICAL CARE, E/M Routine 09/24/2018 30-74 MINUTES 7:02 PM TRAVELING CONSTRUCTION SUPERINTENDENT GRAM STAIN STAT 09/24/2018 7:00 PM TRAVELING CONSTRUCTION SUPERINTENDENT URINE CULTURE STAT 09/24/2018 7:00 PM TRAVELING CONSTRUCTION SUPERINTENDENT URINALYSIS SCREEN AND STAT 09/24/2018 MICROSCOPY, WITH REFLEX 6:36 PM TRAVELING CONSTRUCTION SUPERINTENDENT TO CULTURE XR CHEST 2 VW STAT 09/24/2018 6:20 PM TRAVELING CONSTRUCTION SUPERINTENDENT ECG 12-LEAD STAT 09/24/2018 5:36 PM TRAVELING CONSTRUCTION SUPERINTENDENT MAMMO BREAST SCREEN Routine 07/16/2018 Screening for malignant TOMOSYNTHESIS BILATERAL 3:16 PM TRAVELING CONSTRUCTION SUPERINTENDENT neoplasm of breast ESTIMATED GFR Routine 07/05/2018 [...] STAT 07/04/2018 W/AUTO DIFF 9:30 AM CDT DE CRITICAL CARE, E/M Routine 07/04/2018 30-74 MINUTES 9:25 AM CDT ESTIMATED GFR STAT 05/16/2018 12:21 AM CDT COMPREHENSIVE METABOLIC STAT 05/16/2018 PANEL 12:21 AM CDT HC COMPLETE BLD COUNT STAT 05/16/2018 W/AUTO DIFF 12:21 AM CDT after 04/08/2018 Results * Transfuse fresh frozen plasma (11/14/2018 12:18 PM CDT) Only the most recent of 5 results within the time period is included. * Troponin (11/14/2018 10:33 AM CDT) Only the most recent of 6 results within the time period is included. [facility] Troponin <0.30 0.00 - 0.30 ng/mL [place] Comment: LUTHERAN PERSAUD 0.11 - 1.49 [facility] indicate increased risk of acute coronary syndrome. >=1.5 ng/ml Consistent with acute myocardial infarction. The diagnostic value of a single normal or non-diagnostic result is questionable.Serial samples at 2-6 hour intervals are required to rule out acute myocardial injury. Specimen Plasma specimen Performing Organization Address City/[facility] Phone Number [facility] [address] [place] [phone] PATHOLOGY AND GENOMIC MEDICINE [address] * Prepare fresh frozen plasma, 2 Units (11/14/2018 3:35 AM CDT) Only the most recent of 2 results within the time period is included. Product name Thawed Plasma Pheresis Pt 1 [facility] Unit number [id number] [facility] Product code [id number] [facility] Dispense status Transfused [facility] Blood [id number] [facility] expiration date [facility] Blood type code 5100 [facility] Blood type O POSITIVE [facility] Product name Thawed Plasma Pheresis Pt 2 [facility] Unit number [id number] [facility] Product code [id number] [facility] Dispense status Transfused [facility] Blood [id number] [place] expiration date [facility] Blood type code 5100 [facility] Blood type O POSITIVE [facility] Specimen Blood Performing Organization Address City/[facility] Cent[facility]ode Phone Number [facility] [address] [place], [place] [phone] PATHOLOGY AND GENOMIC MEDICINE [address] * Type and screen (11/14/2018 3:35 AM CDT) Only the most recent of 2 results within the time period is included. ABO grouping O [facility] Rh type NEG [facility] Antibody screen NEG [place] (gel) [facility] Specimen Blood Performing Organization Address City/[facility]/Zipcode Phone Number [facility] DEPARTMENT OF [address] [place] [phone] PATHOLOGY AND [facility] MEDICINE [place] [phone] [address] * Estimated GFR (11/14/2018 3:25 AM CDT) Only the most recent of 6 results within the time period is included. [facility] Estimated GFR 86 mL/min/1.73 m2 [place] Comment: OLIVIA PERSAUD [facility] G1 >=90 Normal or high G2 60-89Mildly decreased [id number] Mildly to moderately decreased [id number] Moderately to severely decreased G4 15-29Severely decreased G5 <15Kidney failure The eGFR was calculated using the Chronic Kidney Disease Epidemiology Collaboration (CKD-EPI) equation. Interpretation is based on recommendations of the National Kidney Foundation-Kidney Disease Outcomes Quality Initiative (NKF-KDOQI) published in 2014. Specimen Plasma specimen Performing Organization Address City/[facility] Cent[facility]ode Phone Number [facility] [address] [place] [address] PATHOLOGY AND [facility] MEDICINE [address] * YEHUDA titer (11/14/2018 3:25 AM CDT) [facility] YEHUDA titer 1:160 (A) Not-Detected [facility] YEHUDA pattern Speckle (A) Not-Detected [facility] Specimen Blood Performing Organization Address [facility] Centercode Phone Number [facility] DEPARTMENT OF [address] [place] [address] PATHOLOGY AND [facility] [place] [address] HOSPITAL * Partial thromboplastin time, activated (11/14/2018 3:25 AM CDT) [facility] PTT 27.7 23.0 - 36.0 sec [place] Comment: [facility] [place] PTT therapeutic range for [facility] unfractionated heparin is HOSPITAL 61.0-112.0 seconds which corresponds to Anti-Xa 0.3-0.7 U/ml. Note:Change in Panic Value The PTT Panic Value is changing from 110 sec. to 100 sec. due to new instrumentation and reagents. Correlation studies have been performed to validate this result. Specimen Blood Performing Organization Address City/[facility]/Zipcode Phone Number [facility] DEPARTMENT OF [address] [facility] [place] [address] PATHOLOGY AND GENOMIC MEDICINE [facility] [address] * Sedimentation rate (11/14/2018 3:25 AM CDT) Sedimentation 55 (H) 0 - 20 mm/hr [facility] Specimen Blood Performing Organization Address City/State/Zipcode Phone Number [facility] DEPARTMENT OF [address] [facility] [place] [address] PATHOLOGY AND GENOMIC MEDICINE [place] [phone] [address] * Prothrombin time with INR (11/14/2018 3:25 AM CDT) Only the most recent of 2 results within the time period is included. Prothrombin 12.5 11.5 - 14.5 sec [facility] INR 0.96 [place] Comment: LUTHERAN PERSAUD For patients on anticoagulant [facility] therapy, reference ranges HOSPITAL below: Indication: INR Value Treatment of Venous Thrombosis, 2.0-3.0 pulmonary emboli, or prophylaxis of a venous thrombosis, or systemic emboli. High dose, high risk patients 3.0-4.5 with mechanical valves. NOTE:INR values over 3.0 are sometimes associated with gastrointestinal hemorrhage, especially values over 4.0. Specimen Blood Performing Organization Address City/[facility] Centercode Phone Number [facility] DEPARTMENT [address] [place] [address] PATHOLOGY AND [facility] MEDICINE [address] * CBC with platelet and differential (11/14/2018 3:25 AM CDT) Only the most recent of 6 results within the time period is included. WBC 9.3 4.2 - 11.0 k/uL [facility] RBC 4.32 4.04 - 5.86 m/uL [facility] HGB 13.0 11.5 - 15.3 g/dL [facility] HCT 40.4 34.0 - 45.0 % [facility] MCV 93.5 80.0 - 98.0 fL [facility] MCH 30.1 27.0 - 34.0 pg [facility] MCHC 32.2 31.5 - 36.5 g/dL [facility] RDW - SD 44.9 37.0 - 51.0 fL [facility] MPV 9.4 7.4 - 10.4 fL [facility] Platelet count 346 150 - 400 k/uL [facility] Nucleated RBC 0.00 /100 WBC [facility] Neutrophils 55.7 36.0 - 66.0 % [facility] Lymphocytes 33.4 24.0 - 44.0 % [facility] Monocytes 7.7 (H) 0.0 - 6.0 % [facility] Eosinophils 2.6 0.0 - 6.0 % [facility] Basophils 0.4 0.0 - 1.2 % [facility] Immature 0.2 0.0 - 1.0 % [place] granulocytes [facility] Specimen Blood Performing Organization Address City/[facility] Centercode [place] [address] PATHOLOGY AND GENOMIC MEDICINE [address] * C4 complement component (11/14/2018 3:25 AM CDT) Pathologist [facility] C4 complement 36 10 - 40 mg/dL [facility] Specimen Blood Performing Organization Address City/[facility]/Zipcode Phone Number [facility] [address] [place] [address] PATHOLOGY AND GENOMIC MEDICINE [address] * C-reactive protein (11/14/2018 3:25 AM CDT) CRP 0.28 0.00 - 0.50 mg/dL [facility] Specimen Plasma specimen Performing Organization Address City/[facility]/Zipcode Phone Number [facility] [address] [place] [address] PATHOLOGY AND GENOMIC MEDICINE [address] [place] * YEHUDA (11/14/2018 3:25 AM CDT) [facility] YEHUDA screen Positive (A) Negative [facility] Specimen Blood Performing Organization Address City/State/Zipcode Phone Number [facility] DEPARTMENT OF [address] [place] [address] PATHOLOGY AND GENOMIC MEDICINE [address] * Hepatic function panel (11/14/2018 3:25 AM CDT) [facility] Albumin 3.7 3.5 - 5.0 g/dL [facility] Total bilirubin <0.3 0.2 - 1.2 mg/dL [facility] Bilirubin <0.2 0.0 - 0.4 mg/dL [place] direct [facility] Alkaline 85 0 - 104 U/L [place] phosphatase [facility] Protein 7.6 6.3 - 8.3 g/dL [facility] ALT 6 5 - 50 U/L [facility] AST 17 10 - 35 U/L [facility] Specimen Plasma specimen Performing Organization Address City/State/Zipcode Phone Number [facility] DEPARTMENT OF [address] [facility] [place] [address] PATHOLOGY AND GENOMIC MEDICINE [address] * Comprehensive metabolic panel (11/14/2018 3:25 AM CDT) Only the most recent of 4 results within the time period is included. [facility] Sodium 141 135 - 150 mEq/L [facility] Potassium 4.1 3.5 - 5.0 mEq/L [facility] Chloride 100 98 - 112 mEq/L [facility] CO2 27 24 - 31 mmol/L [facility] Anion gap 14@ANIO 7 - 15 mEq/L [facility] BUN 19 (H) 7 - 18 mg/dL [facility] Creatinine 0.90 0.50 - 0.90 mg/dL [facility] Glucose 103 (H) 65 - 100 mg/dL [facility] Calcium 9.7 8.3 - 10.2 mg/dL [facility] Protein 7.9 6.3 - 8.3 g/dL [facility] Albumin 3.9 3.5 - 5.0 g/dL [facility] A/G ratio 1.0 0.7 - 3.8 [facility] Alkaline 82 0 - 104 U/L [place] phosphatase [facility] AST 15 10 - 35 U/L [facility] ALT 6 5 - 50 U/L [facility] Total bilirubin <0.3 0.2 - 1.2 mg/dL [facility] Specimen Plasma specimen Performing Organization Address City/State/Zipcode Phone Number [facility] DEPARTMENT OF [address] [place] [address] PATHOLOGY AND GENOMIC MEDICINE [address] * CRITICAL CARE (11/14/2018 3:19 AM CDT) [...] CT Angiogram Pe Chest (09/25/2018 1:48 PM TRAVELING CONSTRUCTION SUPERINTENDENT) Specimen Narrative Performed At EXAMINATION:CT ANGIOGRAM PE CHEST [...] 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 [facility]-[id number] Procedure Note 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 [facility]-[id number] Performing Organization Address City/State/Zipcode Phone Number [facility] [address] [place] [address] * Manual differential (09/25/2018 5:54 AM TRAVELING CONSTRUCTION SUPERINTENDENT) Manual PERFORMED [place] differential [facility] Neutrophils 82.0 (H) 36.0 - 66.0 % [facility] Lymphocytes 14.0 (L) 24.0 - 44.0 % [facility] Monocytes 3.0 0.0 - 6.0 % [facility] Eosinophils 0.0 0.0 - 6.0 % [facility] Basophils 0.0 0.0 - 1.2 % [facility] Metamyelocytes 0 0 - 1 % [facility] Myelocytes 1 0 - 1 % [facility] Promyelocytes 0 0 - 1 % [facility] Platelet slide [facility] adequate [facility] [place] review [facility] Specimen Performing Organization Address City/[facility]/Zipcode Phone Number [place] [address] [address] [place] [address] PATHOLOGY AND [place] [address] [address] * Hemoglobin A1c (09/25/2018 5:54 AM TRAVELING CONSTRUCTION SUPERINTENDENT) [facility] Hemoglobin A1C 5.5 4.0 - 6.0 % [place] Comment: OLIVIA PERSAUD [facility] Less than 6% - Goal of therapy for Type II Diabetes Less than 7%-Goal of therapy for Type I Diabetes Less than 8%-Accepta ble control for Type I or Type II Diabetes Greater than 8%-Unacceptabl e control; action indicated. ([id number]) Specimen Blood Performing Organization Address City/[facility]/Zipcode Phone Number [facility] DEPARTMENT [place] [address] [address] [place] [address] [address] * Lactic acid level, SEPSIS - Now and repeat 2x every 3 hours (09/25/2018 4:54 AM TRAVELING CONSTRUCTION SUPERINTENDENT) Only the most recent of 3 results within the time period is included. [facility] Lactic acid 2.7 (H)Comment: Results called 0.5 - 2.2 mmol/L [place] to and read back by VALERI OSCAR NP AT 06:34 09/25/2018 [facility] BY AGUSTIN. [facility] Specimen Blood Performing Organization Address City/[facility]ercode Phone Number [facility] DEPARTMENT OF [address] [place], [place] [address] [address] * Lipid panel (09/25/2018 4:54 AM TRAVELING CONSTRUCTION SUPERINTENDENT) [facility] Cholesterol 270 (H) 0 - 199 mg/dL [facility] Triglycerides 98 0 - 149 mg/dL [facility] HDL cholesterol 59 40 - 9,999 mg/dL [facility] LDL cholesterol 231 (H)Comment: Result 0 - 99 mg/dL [place] obtained by direct LDL [facility] Lipid panel See below [facility] [place] interpretation Comment: [facility] Total Cholesterol [facility] (mg/dL) [facility] LDL Cholesterol (mg/dL) <200 Desirable <100 Optimal 200-239Borderline -[id number] 29Near or above optimal >=240High 130-159Borderline- high [...] mg/dL) Specimen Plasma specimen Performing Organization Address City/State/Zipcode Phone Number [facility] DEPARTMENT OF [address] [place] [address] PATHOLOGY AND GENOMIC MEDICINE [place] [address] [address] * Basic metabolic panel (09/25/2018 4:54 AM TRAVELING CONSTRUCTION SUPERINTENDENT) Only the most recent of 2 results within the time period is included. Sodium 138 135 - 150 mEq/L [facility] Potassium 4.6 3.5 - 5.0 mEq/L [facility] Chloride 100 98 - 112 mEq/L [facility] CO2 23 (L) 24 - 31 mmol/L [facility] Anion gap 15@ANIO 7 - 15 mEq/L [facility] BUN 13 7 - 18 mg/dL [facility] Creatinine 0.70 0.50 - 0.90 mg/dL [facility] Glucose 161 (H) 65 - 100 mg/dL [facility] Calcium 9.6 8.3 - 10.2 mg/dL [facility] Specimen Plasma specimen Performing Organization Address City/[facility]/Zipcode Phone Number [facility] DEPARTMENT [address] [place] [phone] PATHOLOGY AND GENOMIC MEDICINE [place] [address] [address] * B natriuretic peptide (09/24/2018 9:08 PM TRAVELING CONSTRUCTION SUPERINTENDENT) [facility] BNP 5 0 - 100 pg/mL [facility] Specimen Blood Performing Organization Address [facility] Centercode Phone Number [facility] DEPARTMENT [address] [place] [phone] PATHOLOGY AND GENOMIC MEDICINE [place] [address] [address] * Respiratory pathogen panel (09/24/2018 8:16 PM TRAVELING CONSTRUCTION SUPERINTENDENT) [facility] Respiratory Negative for all pathogens [place] pathogen panel tested: [facility] Negative for Adenovirus HOSPITAL Negative for Coronavirus HKU1 Negative for Coronavirus [...] Specimen Nares - Left Performing Organization Address City/[facility]/Zipcode Phone Number [facility] DEPARTMENT OF [address] [place] [address] PATHOLOGY AND GENOMIC MEDICINE [address] * Influenza antigen test, reflex negative to RPP (09/24/2018 8:16 PM TRAVELING CONSTRUCTION SUPERINTENDENT) [facility] Influenza Negative for Influenza A/B [place] antigen antigen. L[facility]HER[facility] PERSAUD Comment: [facility] Specimen Information HOSPITAL Specimen Source: Nares Specimen Site: Left Specimen Nares - Left Performing Organization Address City/State/Zipcode Phone Number [facility] DEPARTMENT OF [address] [place] [address] PATHOLOGY AND GENOMIC MEDICINE [place] LUTHERAN PERSAUD [address] [place] [address] [facility] * Blood culture, aerobic & anaerobic (09/24/2018 7:18 PM TRAVELING CONSTRUCTION SUPERINTENDENT) Only the most recent of 2 results within the time period is included. Blood culture No growth after 5 days of [place] isolate incubation. [facility] Comment: HOSPITAL Specimen Information Specimen Source: Blood Specimen Site: LH Specimen Blood Performing Organization Address City/[facility]/Zipcode Phone Number [facility] DEPARTMENT OF [address] [place] [address] PATHOLOGY AND GENOMIC MEDICINE [place] [address] [place], [place] [phone] [place] [address] * ECG ED Preliminary Interpretation - Not an Order (09/24/2018 7:02 PM TRAVELING CONSTRUCTION SUPERINTENDENT) Narrative Performed At Parish Lyles MD 09/25/20185:55 PM ECG ED Preliminary Interpretation - Not an Order Performed by: Parish Lyles MD Authorized by: Parish Lyles MD ECG reviewed by ED Physician in the absence of a vice president network: yes Interpretation: Interpretation: abnormal Rate: ECG rate:78 ECG rate assessment: normal Rhythm: Rhythm: sinus rhythm Ectopy: Ectopy: none QRS: QRS axis:Right QRS intervals:Normal Conduction: Conduction: normal ST segments: ST segments:Normal T waves: T waves: inverted Inverted:III * CRITICAL CARE (09/24/2018 7:02 PM TRAVELING CONSTRUCTION SUPERINTENDENT) Narrative Performed At Parish Lyles MD 09/25/20185:55 [...] no * Gram stain (09/24/2018 7:00 PM TRAVELING CONSTRUCTION SUPERINTENDENT) Gram stain Few WBC's [facility] result Many Gram variable rods [facility] Comment: HOSPITAL Specimen Information Specimen Source: Urine Specimen Site: Clean catch Specimen Urine Performing Organization Address City/[facility]ode Phone Number [facility] DEPARTMENT OF [address] [place] [address] PATHOLOGY AND GENOMIC MEDICINE [address] * Urine culture (09/24/2018 7:00 PM TRAVELING CONSTRUCTION SUPERINTENDENT) Urine culture Mixed holger 10-5 col/cc [facility] [place] isolate Comment: [facility] Specimen Information HOSPITAL Specimen Source: Urine Specimen Site: Clean catch Specimen Urine Performing Organization Address City/[facility] Centercoks Phone Number [facility] DEPARTMENT OF [address] [place] [address] PATHOLOGY AND GENOMIC MEDICINE [address] * Urinalysis screen and microscopy, with reflex to culture (09/24/2018 6:36 PM TRAVELING CONSTRUCTION SUPERINTENDENT) Specimen site Clean catch [facility] Color, UA Yellow [facility] Appearance, UA Clear [facility] Specific 1.014 1.001 - 1.035 [place] gravity, [facility] pH, UA 6.0 5.0 - 8.5 [facility] Protein, UA Negative Negative [facility] [facility] Glucose, UA Negative Negative [facility] Ketones, UA Negative Negative [facility] Bilirubin, UA Negative Negative [facility] Blood, UA Negative Negative [facility] Nitrite, UA Negative Negative [facility] Urobilinogen, Negative <2.0 [facility] Leukocyte Large (A) Negative [facility] esterase, [facility] Epithelial Many /HPF [facility] cells, UA [facility] WBC, UA 3 0 - 5 /HPF [facility] RBC, UA 1 0 - 5 /HPF [facility] Bacteria, UA None seen None seen [facility] Yeast, UA None seen [facility] Yeast with None seen [facility] Specimen Urine Performing Organization Address City/[facility] Phone Number [facility] DEPARTMENT OF [address] [address] PATHOLOGY AND GENOMIC MEDICINE [facility] [address] [place], [place] [id number] [place] [address] * XR Chest 2 Vw (09/24/2018 6:20 PM TRAVELING CONSTRUCTION SUPERINTENDENT) Specimen Narrative Performed At EXAMINATION:XR CHEST 2 VW RADIANT CLINICAL HISTORY:cough COMPARISON:08/07/2017 TECHNIQUE: Frontal and lateral views of the chest obtained. IMPRESSION: Cardiomediastinal silhouette and pulmonary vasculature within normal limits. Mild bibasilar atelectasis and or scarring. Lungs and pleural spaces otherwise clear. [id number] Procedure Note Hm Interface, Radiology Results Incoming - 09/24/2018 6:27 PM TRAVELING CONSTRUCTION SUPERINTENDENT EXAMINATION: XR CHEST 2 VW CLINICAL HISTORY: cough COMPARISON: 08/07/2017 TECHNIQUE: Frontal and lateral views of the chest obtained. IMPRESSION: Cardiomediastinal silhouette and pulmonary vasculature within normal limits. Mild bibasilar atelectasis and or scarring. Lungs and pleural spaces otherwise clear. [id number] Performing Organization Address City/[facility] Centercode Phone Number [facility] [address] [place] [address] * ECG 12 lead (09/24/2018 5:36 PM TRAVELING CONSTRUCTION SUPERINTENDENT) Ventricular 78 [facility] rate Atrial rate 78 [facility] DE interval 158 [facility] QRSD interval 96 [facility] QT interval 384 [facility] QTC interval 437 [facility] P axis 1 63 [facility] QRS axis 1 93 [facility] T wave axis 5 [facility] EKG impression Normal sinus rhythm-Rightward [facility] MUSE axis-Nonspecific T wave abnormality-Abnormal ECG-No previous ECGs available- Specimen Narrative Performed At Performing Organization Address City/State/Zipcode Phone Number [facility] [address] [place] [address] * Mammo Breast Screen Tomosynthesis Bilateral (07/16/2018 3:16 PM TRAVELING CONSTRUCTION SUPERINTENDENT) Specimen Narrative Performed At PROCEDURE: MAMMO BREAST SCREEN [...] 1:NEGATIVE This facility is accredited by the [employer] for Mammography. A negative x-ray report should not delay biopsy if a dominant or clinically suspicious mass is present.Not all cancers are identified by x-ray. [id number] Performing Organization Address [facility]/Zipcode Phone Number [facility] [address] [place] [address] * Phosphorus level (07/05/2018 4:25 AM CDT) Phosphorus 3.0 2.4 - 4.5 mg/dL [facility] DEPARTMENT OF PATHOLOGY AND GENOMIC MEDICINE Specimen Plasma specimen Performing Organization Address [facility] Centerc[place] [address] PATHOLOGY AND GENOMIC MEDICINE * Magnesium level (07/05/2018 4:25 AM CDT) Magnesium 2.00 1.60 - 2.60 mg/dL [facility] DEPARTMENT OF PATHOLOGY AND GENOMIC MEDICINE Specimen Plasma specimen Performing Organization Address [facility] Centerc[place] [address] PATHOLOGY AND GENOMIC MEDICINE * Ionized calcium (07/05/2018 4:25 AM CDT) pH 7.41 [facility] DEPARTMENT OF PATHOLOGY AND GENOMIC MEDICINE Ionized calcium 1.15 1.11 - 1.32 mmol/L [facility] DEPARTMENT OF PATHOLOGY AND GENOMIC MEDICINE Specimen Plasma specimen Performing Organization Address [facility] Centerc[place] [address] PATHOLOGY AND GENOMIC MEDICINE * POC glucose (07/04/2018 5:20 PM CDT) Only the most recent of 2 results within the time period is included. POC glucose 142 (H) 65 - 100 mg/dL [facility] DEPARTMENT Comment: OF PATHOLOGY Meter ID: [id number] AND GENOMIC Soft Sugar Operator Head: Orquidea Jassi MEDICINE Specimen Performing Organization Address City/State/Zipcode Phone Number [facility] DEPARTMENT OF [address] [place] [address] PATHOLOGY AND GENOMIC MEDICINE * CRITICAL CARE [...] this patient from another provider.: no after 04/08/2018 Insurance Type Payer Benefit Subscriber ID Effective Phone Address Plan / Dates Group O [employer] CIGNA OPEN xxxxxxxxxxx [id number] ACCESS/NET resent WORK Advance Directives Patient has advance care planning documents on file. For more information, parviz lino contact: Bertram Gorman [address] [place] [address]
[2019-04-09] MEDS ORDERED: SODIUM CHLORIDE 0.9% 1000ML 1,000 ML IV STA (08:20)
[2019-04-09] MEDS ORDERED: METHYLPREDNISOLONE SOD SUCC 125 MG/2ML VIAL IV NR (08:20)
--- NOTE | 2019-04-09 08:21 | NUR ---
DR COOPER IN TRIAGE FOR PATIENT EVAL.
[2019-04-09] MEDS ORDERED: FAMOTIDINE 20 MG/2 ML VIAL IV NR (08:30)
[2019-04-09] MEDS ORDERED: DIPHENHYDRAMINE HCL INJ 50 MG/ML VIAL IV ONE (08:45)
[2019-04-09 09:16] LABS: BASOPHILS % 0.2 % (0.0-1.0); EOSINOPHILS # (AUTO) 0.1 (0.0-0.4); EOSINOPHILS % 1.2 % (0.0-6.0); HEMATOCRIT 38.4 % (34.2-44.1); HEMOGLOBIN 12.8 g/dL (12.0-16.0); LYMPHOCYTES # (AUTO) 1.9 (1.0-3.2); LYMPHOCYTES % 21.7 % (18.0-39.1); MEAN CORPUSCULAR HEMOGLOBIN 30.5 pg (28-32); MEAN CORPUSCULAR HGB CONC 33.3 g/dL (31-35); MEAN CORPUSCULAR VOLUME 91.6 fL (81-99); MONOCYTES # (AUTO) 0.5 (0.2-0.8); MONOCYTES % 5.8 % (4.4-11.3); NEUTROPHILS # (AUTO) 6.1 (2.1-6.9); NEUTROPHILS % 70.9 % (38.7-80.0); PLATELET COUNT 325 x10e3/uL (140-360); RED BLOOD COUNT 4.19 x10e6/uL (3.6-5.1)
[2019-04-09 09:20] LABS: BILIRUBIN,URINE NEGATIVE (NEGATIVE); CLARITY,URINE CLEAR (CLEAR); COLOR,URINE YELLOW (YELLOW); KETONES,URINE NEGATIVE (NEGATIVE); LEUKOCYTE ESTERASE ,URINE TRACE (NEGATIVE); NITRITE,URINE NEGATIVE (NEGATIVE); PROTEIN,URINE DIPSTICK TRACE (NEGATIVE); URINE UROBILINOGEN 0.2 mg/dL (0.2 - 1)
[2019-04-09 09:25] LABS: INR 0.92; PROTHROMBIN TIME 12.9 seconds (11.9-14.5)
[2019-04-09 09:26] LABS: PARTIAL THROMBOPLASTIN TIME 25.1 seconds (23.8-35.5)
[2019-04-09 09:33] LABS: ALANINE AMINOTRANSFERASE 7 IU/L (0-55); ALBUMIN 3.6 g/dL (3.5-5.0); ALBUMIN/GLOBULIN RATIO 0.9 (0.8-2.0); ALKALINE PHOSPHATASE 71 IU/L (40-150); ANION GAP 16.5 mmol/L (8-16); BLOOD UREA NITROGEN 10 mg/dL (7-26); BUN/CREATININE RATIO 12 (6-25); CALCIUM 9.5 mg/dL (8.4-10.2); CARBON DIOXIDE 24 mmol/L (22-29); CHLORIDE 102 mmol/L (98-107); CREATINE KINASE 108 IU/L (29-168); CREATININE, SERUM 0.86 mg/dL (0.57-1.11); EST GLOMERULAR FILTRATION RATE > 60 ML/MIN (60-); GLUCOSE 111 mg/dL (74-118); POTASSIUM 3.5 mmol/L (3.5-5.1); SODIUM 139 mmol/L (136-145)
[2019-04-09 09:42] LABS: BACTERIA,URINE FEW /HPF; EPITHELIAL CELLS,URINE MODERATE /LPF; RBC,URINE 0-5 /HPF (0-5)
--- NOTE | 2019-04-09 09:46 | Diagnostic Imaging Report ---
EXAMINATION: CHEST 2 VIEWS INDICATION: Cough COMPARISON: Chest radiograph of 01/05/2018 FINDINGS: LINES/TUBES:EKG leads overlie the chest. LUNGS:The lungs are moderately inflated. Mild patchy retrocardiac opacity, likely subsegmental atelectasis. No pulmonary edema. Bilateral subcentimeter calcified granulomas. PLEURA:No pleural effusion or pneumothorax. MEDIASTINUM:The cardiomediastinal silhouette appears normal in size and shape. Hiatal hernia. BONES/SOFT TISSUES:No acute osseous injury. Degenerative changes of the visualized spine. ABDOMEN:No free air under the diaphragm. IMPRESSION: Mild patchy retrocardiac opacity, likely subsegmental atelectasis. Hiatal hernia. Signed by: Elan Harrison MD on 04/09/2019 9:43 AM
[2019-04-09 09:52] LABS: THYROID STIMULATING HORMONE 0.811 uIU/mL (0.350-4.940)
[2019-04-09 10:38] VITALS: BP 117/68
== END 2019-04-09 10:40 | disposition home or self-care (01) ==
LOC: ER 08:01
DX: R05 Cough (principal); M25.512 Pain in left shoulder; M25.511 Pain in right shoulder; J20.9 Acute bronchitis, unspecified; T78.3XXA Angioneurotic edema, initial encounter; R01.1 Cardiac murmur, unspecified
CPT/HCPCS: 36415; 71046; 80053; 81001; 82550; 82553; 83735; 83880; 84443; 84484; 85025; 85610; 85730; 87086; 93005; 99284; J1200; J2930; J7030